=== PATIENT | male | born 1955 | race African-American/Black ===

== ENCOUNTER 2016-06-04 15:14 | Inpatient (IN) ==
[2016-06-04] MEDS ORDERED: HYDROmorphone 2 MG/1 ML VIAL IV PRN (15:22)
[2016-06-04] MEDS ORDERED: ALUMINUM/MAGNES/SIMETH MAX STR 30 ML UDCUP PO PRN (15:22)
[2016-06-04] MEDS ORDERED: GLUCAGON 1 MG VIAL IM PRN ×2 (15:22→15:32)
[2016-06-04] MEDS ORDERED: DEXTROSE 50% 25 GM/50 ML VIAL IV PRN ×2 (15:22→15:32)
[2016-06-04] MEDS ORDERED: ACETAMINOPHEN 325 MG TABLET PO PRN (15:22)
[2016-06-04] MEDS ORDERED: ONDANSETRON 4 MG/2 ML VIAL IV PRN (15:22)
--- NOTE | 2016-06-04 16:31 | General Surg History&Physical ---
Assessment and Plan - Time spent with patient Time spent with patient: Greater than 30 minutes (1) Diabetic ulcer of left foot Status: Acute Assessment and plan: Impression: 1. Diabetic ulcer of the left foot 5th metatarsal heal 2. Ischemic changes base of the left 5th toe due to infection 3. Blister of the medial foot 4. Poss osteomylitis of the 5th metatarsal bone. Plan: ampuation of the 5th toe with debridement of the foot. Qualifiers: Diabetes mellitus type: due to underlying condition Qualified Code(s): E08.621 - Diabetes mellitus due to underlying condition with foot ulcer; L97.529 - Non-pressure chronic ulcer of other part of left foot with unspecified severity History of Present Illness Chief complaint: Returns with ischemia and infection of the left foot History of present illness: Mr. Laird is a 60 year old male AA who has diabetes with chronic diabetic ulcer of the left foot. He was in the hospital last week due to bleeding of the ulcer following debridement which included bone. He returns today with wound worse with ischemic changes at the base of the 5th toe and blister on the medial aspect of the foot. He will need debridement and amputation of the 5th toe. Home Medications Medication Instructions Recorded Confirmed Type Insulin Detemir [Levemir] 30 units SUBCUT BEDTIME 01/29/16 05/29/16 History Lisinopril 40 mg PO DAILY 01/29/16 05/29/16 History amLODIPine [Norvasc] 5 mg PO DAILY 01/29/16 05/29/16 History Ciprofloxacin Tab [Cipro Tab] 500 mg PO BID 05/29/16 05/29/16 History Mometasone Furoate [Elocon 0.1% 0.1 % TOP DAILY 05/29/16 05/29/16 History Oint] Ciprofloxacin Tab [Cipro Tab] 500 mg PO Q12HR #10 tablet 05/30/16 Rx Insulin Glargine [Lantus] 30 unit SUBCUT BEDTIME injection 05/30/16 Rx Lisinopril [Prinivil] 40 mg PO DAILY tablet 05/30/16 Rx Mometasone 0.1% Cream [Elocon 0.1% 1 applic TOP DAILY cream 05/30/16 Rx Cream] amLODIPine [Norvasc] 5 mg PO DAILY tablet 05/30/16 Rx Allergies Allergy/AdvReac Type Severity Reaction Status Date / Time No Known Allergies Allergy Verified 05/29/16 19:59 Medical,Surgical,& Family Hx - Medical History Cardio: History of: Hypertension, PVD Neurology: History of: TIA (02/09/2015) No history of: Seizures HEENT: History of: Ear Problem (Mild Loss), Eye Problem Endocrine: History of: Diabetes Mellitus (IDDM) Respiratory: No history of: Pneumonia (No Pneum Vac Hx), Respiratory Problems (No Flu Vac 2016) Musculoskeletal: History of: Amputation (Right second toe R/T infection) Other: History of: Skin Problems (Ulcer Foot Surgery 01/25/13 RT; Lt Ulcer 02/01/16 ; 03/14/16 Sched for Closure) No history of: Anesthesia Reactions - Surgical History Thoracic Surgeries: Patient denies;: Organ Transplant, Lobectomy Neurologic Surgeries: Patient denies: Neurologic Surgery Reproductive Surgeries: Patient denies;: Genitourinary Surgery - Family History Family History: Reports;: Family Cancer (grand father and uncle), Family Diabetes (grandmother), Family Hypertension (mother), Family Stroke (mother) - Social History Smoking Status: Never smoker Marital Status: Lives With:: Spouse Functional capacity: independent ambulation Exam - Constitutional General appearance: mild distress - Head Head exam: Present: normal inspection - ENT ENT exam: Present: normal exam - Neck Neck exam: Present: normal inspection - Respiratory Respiratory exam: Present: clear to auscultation bilaterally - Cardiovascular Cardiovascular exam: Present: RRR - GI/Abdominal GI/Abdominal exam: Present: normal bowel sounds, soft - Extremities Exam Extremities exam: Present: other (Left foot with ulcer on the lateral aspect at the 5th metatarsal head. Ischemic skin changes on the dorsum of the foot at the base of the 5th toe. Blister on the medial aspect of the foot near the ankle.) - Neurological Exam Neurological exam: Present: alert, oriented X3, CN II-XII intact - Skin Skin exam: Present: normal color, warm, dry 12 point system: reviewed and no additional remarkable complaints except as stated Quality Measures - VTE Contraindication to Pharmacological VTE Prophylaxis: High Risk of Bleeding Contraindication to Mechanical VTE Prophylaxis: Local Inflammation
[2016-06-04 17:06] LABS: Basophils % 0.3 % (0.0-0.8); Eosinophils % 0.3 % (0.00-10.9); Hematocrit 33.5 VOL% (42.0-52.0); Hemoglobin 10.3 GM/DL (14.0-18.0); Immature Granulocytes % 0.4 %; Immature Granulocytes Absolute 0.03 #; Lymphocytes % 26.6 % (21.2-54.2); Mean Corpuscular HGB Conc 30.7 GM/DL (32-36); Mean Corpuscular Hemoglobin 28 PG (27-34); Mean Corpuscular Volume 90.5 FL (87-102); Mean Platelet Volume 9.1 FL (9.6-12.0); Monocytes # 0.6 10*3/uL (0.11-0.8); Monocytes % 7.6 % (1.7-12.7); Neutrophils # 4.8 10*3/uL (1.4-7.4); Neutrophils % 64.8 % (38.7-73.9); Platelet Count 271 10*3/uL (130-400); Red Cell Distribution Width 12.9 % (9.3-17.3); White Blood Count 7.3 10*3/uL (4.5-13.71)
[2016-06-04 17:18] LABS: INR 1.1; PT Patient Result 11.4 SECS; Partial Thromboplastin Time 28.5 SECS (0-40)
[2016-06-04 17:35] LABS: Alanine Aminotransferase 22 U/L (16-61); Albumin 3.5 G/DL (3.4-5.0); Alkaline Phosphatase 76 U/L (45-117); Aspartate Amino Transferase 17 U/L (0-37); Bilirubin,Total < 0.39 MG/DL (0.2-1.0); Blood Urea Nitrogen 35 MG/DL (7-18); Calcium 8.8 MG/DL (8.5-10.1); Glucose 119 MG/DL (74-106); Osmolality,Calculated 291.1 MOS/KG (273-304); Potassium 4.8 MMOL/L (3.5-5.1); Sodium 142 MMOL/L (136-145)
--- NOTE | 2016-06-04 17:52 | XRay Report ---
XR chest 2V Indication: Preop respiratory evaluation. Comparison: None. Technique: PA and lateral chest x-ray was performed. Findings: The heart size is within normal limits. The mediastinal contour demonstrates no significant abnormality. The lungs are clear. Bones and soft tissues demonstrate no acute abnormality. Impression: 1. No active cardiopulmonary disease. 06/04/2016 5:49 PM PROCEDURE INTERPRETED AT [facility] DEPARTMENT OF RADIOLOGY Final Report Signed by: Dr. Christiano Parker
--- NOTE | 2016-06-04 17:53 | XRay Report ---
XR foot 2V LT Indication: Alteration of the lateral foot. Comparison: Left foot x-ray 01/31/2016. Technique: AP, lateral, and oblique views of the left foot were submitted. Findings: Fragmentation and osteolysis of the distal fifth metatarsal is noted. Additionally, there may be minimal periosteal reaction extending through the proximal bony structure of the metatarsal and the metatarsal has a mottled pattern of demineralization associated. Fracture involving the base of the fifth toe proximal phalanx is not excluded. Bony structure the left foot otherwise is fairly stable compared to prior study no additional evidence of osteo-myelitis is demonstrated. Impression: 1. Findings compatible with acute osteomyelitis involving the lateral aspect of the left foot most involving the distal metatarsal and proximal phalanx of the left fifth toe, but with permeative pattern of demineralization extending along the proximal aspect of the fifth metatarsal. 06/04/2016 5:49 PM PROCEDURE INTERPRETED AT [facility] DEPARTMENT OF RADIOLOGY Final Report Signed by: Dr. Christiano Parker
[2016-06-04] MEDS: INSULIN REGULAR 100 UNIT/ML SUBCUT SCH ×2 (18:31→20:54)
[2016-06-04] MEDS: SODIUM CHLORIDE 0.45% 1,000 ML IV SCH (18:48)
[2016-06-04] MEDS: metroNIDAZOLE INJ 500 MG in PREMIX 1 EACH IV SCH (18:49)
[2016-06-04] MEDS: DOCUSATE SODIUM 100 MG CAPSULE PO SCH (20:54)
[2016-06-04] MEDS ORDERED: INSULIN GLARGINE 100 UNIT/ML SUBCUT SCH (21:00)
[2016-06-04] MEDS: INSULIN GLARGINE 100 UNIT/ML SUBCUT SCH (21:26)
[2016-06-04] MEDS: VANCOMYCIN INJ 1,500 MG in SODIUM CHLORIDE 0.9% 500 ML IV SCH (21:50)
[2016-06-05] MEDS: SODIUM CHLORIDE 0.45% 1,000 ML IV SCH ×3 (00:17→23:56)
[2016-06-05] MEDS: metroNIDAZOLE INJ 500 MG in PREMIX 1 EACH IV SCH ×3 (02:54→18:01)
[2016-06-05 08:53] LABS: Osmolality,Calculated 289.1 MOS/KG (273-304); Potassium 4.5 MMOL/L (3.5-5.1)
[2016-06-05] MEDS ORDERED: amLODIPine 10 MG TABLET PO SCH (09:00)
[2016-06-05] MEDS ORDERED: MOMETASONE FUROATE 0.1% TOP SCH (09:00)
[2016-06-05] MEDS ORDERED: LISINOPRIL 20 MG TABLET PO SCH (09:00)
[2016-06-05] MEDS: MOMETASONE 0.1% CREAM 15 GM TUBE TOP SCH (09:40)
[2016-06-05] MEDS: INSULIN REGULAR 100 UNIT/ML SUBCUT SCH ×4 (09:40→21:31)
[2016-06-05] MEDS: DOCUSATE SODIUM 100 MG CAPSULE PO SCH ×2 (09:40→21:14)
[2016-06-05] MEDS: LISINOPRIL 20 MG TABLET PO SCH (09:43)
[2016-06-05] MEDS: amLODIPine 5 MG TABLET PO SCH (09:43)
[2016-06-05] MEDS: VANCOMYCIN INJ 1,500 MG in SODIUM CHLORIDE 0.9% 500 ML IV SCH ×2 (09:44→21:50)
[2016-06-05] MEDS: PANTOPRAZOLE 40 MG TABLET PO SCH (09:44)
--- NOTE | 2016-06-05 10:38 | EKG Report ---
Stationary ECG Study [facility] Test Date: 06/05/2016 9:25:36 AM Pat Name: FREDY SAMSON Department: Room: 331 Gender: M Philosophy Instructor: : [id number] Requested by: Ian Soto Order Number: [id number] Reading MD: JOSHUA ROBLES Intervals [place] Rate: 70 P: 66 AK: 166 QRS: -11 QRSD: 103 T: 51 QT: 402 QTc: 422 Interpretive Statements SINUS RHYTHM Electronically Signed On 06-05-16 12:54:43 MAIL AGENT by JOSHUA ROBLES [email or web address]
[2016-06-05] MEDS ORDERED: BUPIVACAINE 0.25% 50 ML VIAL ONE (12:31)
[2016-06-05] MEDS ORDERED: MIDAZOLAM 2 MG/2 ML VIAL ONE ×2 (12:39→14:14)
[2016-06-05] MEDS ORDERED: fentaNYL 100 MCG/2 ML VIAL ONE ×2 (12:39→14:14)
[2016-06-05] MEDS ORDERED: ROPIVACAINE 0.5% 30 ML VIAL ONE (12:41)
[2016-06-05] MEDS ORDERED: PROPOFOL 200 MG/20 ML VIAL IV ONE (13:00)
[2016-06-05] MEDS ORDERED: ONDANSETRON 4 MG/2 ML VIAL ONE (13:00)
[2016-06-05] MEDS ORDERED: DEXTROSE 50% 25 GM/50 ML VIAL IV PRN (13:54)
[2016-06-05] MEDS ORDERED: GLUCAGON 1 MG VIAL IM PRN (13:54)
[2016-06-05] MEDS ORDERED: HYDROmorphone 2 MG/1 ML VIAL IV PRN (13:54)
--- NOTE | 2016-06-05 14:11 | Operative Note ---
Date of procedure: 06/05/16 Pre-op diagnosis: diabetic ulcer left foot fifth metatarsal with osteomyelitis and abscess fo Post-op diagnosis: same Procedure: Operative note: Preoperative diagnosis: 1. Diabetic ulceration of the left foot fifth metatarsal head with necrotic abscess formation distal lateral foot 2. Evidence of osteomyelitis of the fifth metatarsal 3. Blister of the medial aspect of the dorsum of the foot per secondary cellulitis Postoperative diagnosis same Procedure: 1. Amputation of the left fifth toe and metatarsal bone 2. Extensive debridement of skin subcutaneous tissue muscle tendon and bone of the left lateral foot 3. Debridement of blister anterior portion medial aspect the left foot Surgeon Dr. Soto Anesthesia was a ankle block with managed anesthetic care and local infiltration Brief history: 60-year-old male diabetic who has had a chronic nonhealing ulcer of the lateral aspect the left foot that it one time was actually closed but then we brought back down. I debridement last week removed a good bit of necrotic bone and cartilage in that area. He was admitted for bleeding and sent home the next day brought back to the office today to follow-up on the is being on antibiotics. His cultures grew out 2 different antibiotics and he came in with a necrotic area on the dorsum of his foot at the base of the fifth toe with blister on the medial aspect of the left foot. We needed bring him in and get this debrided. X-rays confirmed osteomyelitis and that the tarsal bone. Procedure: With patient in supine position prepped and draped in a sterile fashion Timeout and antibiotics completed approach the area of the left great toe where I infiltrated with some local anesthetic. We have had ulcer on the lateral aspect of the foot that measured 2 cm x 1 cm x 1 cm with a necrotic area anterior to this 6, measure 5 x 4 cm in size. At that point I did they elliptical incision around the base of the fifth toe with the knife and carried out to the skin subcutaneous tissue until I was able to completely remove the toe itself at this time. We encountered a good bit of necrotic tissue and purulent material that we cultured aerobically and anaerobically with tissues and swabs. I then took scissors and knife and we begin debride the necrotic tissue as this foot wound being sure that we went ahead and cleared up all the dark necrotic looking tissue including skin. This allowed us get down to the bone were is able to take periosteal elevator elevate the periosteum around the metatarsal bone and take a bone cutter remove the necrotic portion of metatarsal bone. I then took the scissors debrided a little more than necrotic tissue in the base of the skin subcutaneous tissue fascia and some muscle in this area to be sure that it is clean as I could get it. A little concerned about some necrotic tissues going on to the top of the fourth toe back cleaned it to where I can look like adequate completely clear. Once I had all the necrotic tissue in material removed from this portion of the foot I washed and irrigated and cleaned it up with saline solution. We now have a post- debridement wound at 7.5 x 4 x 1.87 m in size. At that point I slipped over to the blistered area on the medial aspect of the dorsum of the foot opened it up and there was not much fluid underneath it the skin underneath looked okay at this point time with no necrotic looking tissue that I could see. No fluctuance was noted underneath it side did not make any type of incision in this area at this time. With all this completed then washed irrigated and bleeding controlled left cauterization at this point I elected go ahead and pack it with a Dakin's wet fluff putting a bulky dressing on top wrapping with cast padding Covan to the knee. Once that was completed then we took the patient recovery room. Estimated blood loss 20 mL Sponge count correct 2 Drains none Complications none Condition stable satisfactory Anesthesia: MAC, regional (regional block at the ankle), local (local with 0.25 % Marcaine with without and 1% Xylocaine plain) Surgeon / Physician: Ian Soto Estimated blood loss: other (20 mL) Specimens: other (tissue for pathology and for culture including bone culture) Condition: stable Disposition: floor Results - Labs CBC & BMP: 06/04/16 16:56 06/05/16 07:58 Discharge Plan - Discharge Medications No Action Insulin Detemir [Levemir] 30 units SUBCUT BEDTIME amLODIPine [Norvasc] 5 mg PO DAILY tablet Mometasone Furoate [Elocon 0.1% Oint] 0.1 % TOP DAILY Ciprofloxacin Tab [Cipro Tab] 500 mg PO Q12HR #10 tablet Lisinopril [Prinivil] 40 mg PO DAILY tablet - Follow Up or Referral - Forms/Instructions
[2016-06-05] MEDS ORDERED: SODIUM CHLORIDE 0.9% 100 ML IV ONE (14:14)
--- NOTE | 2016-06-05 15:08 | Anesthesia ---
Anesthesia Procedures - Nerve Blocks Surgical Procedure: Amputation left 5th toe Main Anesthetic: other (Sciatic popliteal block) Position: supine Type of Block: Left: Popliteal Patinet Consent: Patinet consented for above nerve block., Risks and benefits were discussed with patient,including infection,, bleeding,injury to surrounding structures, seizure, temporary nerve, Patient understands and accepts potential risks/benefits and agrees to, proceed. ASA Monitors on: pulse oximetry, EKG, BP cuff, oxygen via Local Anesthetic: 0.5% Ropivicaine (5cc aliquots given to 20cc,plus aspiration) Ultrasound Used to: Recognize Landmarks (and visalize sciatic at popliteal fossa ,sacnned to visualize just before the spliting in peroneal and tibial nerve) Interscalene / Femoral BLK: 2" Stimuplex 22G needle used for posterior and inplane approach, Visualize local anesthetic spread, no vascular puncture indentified Nerve Stimulator used: Yes Inject slowly in 5cc increments with:: Negative aspitation of heme Patient vitals signs stable throughout procedure.: Patient tolertaed the procedure well with no apparent complications.
[2016-06-05 20:56] LABS: Hematocrit 26.4 VOL% (42.0-52.0); Hemoglobin 8.7 GM/DL (14.0-18.0)
[2016-06-05] MEDS: INSULIN GLARGINE 100 UNIT/ML SUBCUT SCH (21:33)
[2016-06-06] MEDS: metroNIDAZOLE INJ 500 MG in PREMIX 1 EACH IV SCH ×3 (02:46→18:18)
[2016-06-06 05:46] LABS: Basophils % 0.4 % (0.0-0.8); Eosinophils # 0.1 10*3/uL (0.0-0.87); Eosinophils % 0.9 % (0.00-10.9); Hematocrit 27.6 VOL% (42.0-52.0); Hemoglobin 8.8 GM/DL (14.0-18.0); Immature Granulocytes % 0.2 %; Immature Granulocytes Absolute 0.01 #; Lymphocytes # 1.7 10*3/uL (1.4-4.0); Lymphocytes % 29.4 % (21.2-54.2); Mean Corpuscular HGB Conc 31.9 GM/DL (32-36); Mean Corpuscular Hemoglobin 28 PG (27-34); Mean Corpuscular Volume 88.7 FL (87-102); Mean Platelet Volume 9.5 FL (9.6-12.0); Monocytes # 0.5 10*3/uL (0.11-0.8); Monocytes % 9.1 % (1.7-12.7); Neutrophils # 3.4 10*3/uL (1.4-7.4); Platelet Count 202 10*3/uL (130-400); Red Blood Count 3.11 10*6/uL (3.8-5.5); Red Cell Distribution Width 12.7 % (9.3-17.3); White Blood Count 5.6 10*3/uL (4.5-13.71)
[2016-06-06 06:22] LABS: Calcium 7.8 MG/DL (8.5-10.1); Potassium 4.8 MMOL/L (3.5-5.1)
--- NOTE | 2016-06-06 07:44 | Physician Query Form ---
CLICK EDIT DOCUMENT TO SELECT QUERY ANSWER --> OK --> SIGN Gemini Parker RN, CCDS Certified Clinical Tin Recovery Worker W) [phone] (f) [phone] [email or web address]: Make your selection(s) from the choices in EACH section by typing an "x" and enter comments in the comment section. Please use your independent medical judgment in providing your response. This request does not imply that any particular answer is desired or expected. CLINICAL INDICATORS: (Providers should not edit this section) The medical record indicates that the patient was admitted with a DM ulcer of the foot, creatinine of 2.00 on the 3rd that has to 1.30 on the 5th, GFR of 53 on the 3rd that has increased to 90 on the 5th and the patient is IV antibiotics (1700 cc in fluid) / PO intake- Clarify which of the following most accurately represents the patient's renal status: ( x) Acute kidney injury (non-traumatic) ( ) Acute renal failure ( ) Acute renal failure with underlying Chronic Kidney Disease (CKD) - please provide stage below ( ) Acute renal failure with pathological renal lesion ( ) Acute renal failure with necrosis ( ) tubular ( ) medullary ( ) cortical ( ) CKD - please provide stage below ( ) End Stage Renal Disease ( ) Acute interstitial nephritis ( ) Hepatorenal syndrome ( ) Other, please specify: ( ) Clinically unable to determine Chronic Kidney Disease Stages Source: National Kidney Disease Foundation ( ) Stage I (eGFR > or = 90) ( ) Stage II (eGFR 60 - 89) ( ) Stage III (eGFR 30 - 59) ( ) Stage IV (eGFR 15 - 29) ( ) Stage V (eGFR < 15 or dialysis) COMMENTS: Use of terms such as suspected, likely, or probable (associated with a specific diagnosis that is being evaluated, monitored, or treated as if it exists) are acceptable and can be restated in the discharge summary if not ruled out. MTDD
[2016-06-06] MEDS: INSULIN REGULAR 100 UNIT/ML SUBCUT SCH ×4 (08:14→21:41)
[2016-06-06] MEDS: amLODIPine 5 MG TABLET PO SCH (08:59)
[2016-06-06] MEDS: DOCUSATE SODIUM 100 MG CAPSULE PO SCH ×2 (08:59→21:41)
[2016-06-06] MEDS: PANTOPRAZOLE 40 MG TABLET PO SCH (08:59)
[2016-06-06] MEDS: LISINOPRIL 20 MG TABLET PO SCH (08:59)
[2016-06-06] MEDS: SODIUM CHLORIDE 0.45% 1,000 ML IV SCH ×3 (09:00→23:28)
[2016-06-06] MEDS: VANCOMYCIN INJ 1,500 MG in SODIUM CHLORIDE 0.9% 500 ML IV SCH ×2 (09:02→21:49)
--- NOTE | 2016-06-06 09:20 | Infectious Disease Consult ---
Assessment and Plan (1) Acute osteomyelitis of left foot Status: Acute Assessment and plan: Agree with current empiric antibiotics. Will follow up cultures and adjust antibiotics accordingly. Check ESR and CRP. Thank you very much for the consult. WIll follow. D/W at bedside Current Visit: Yes (2) Diabetic ulcer of left foot Status: Acute Current Visit: No Qualifiers: Diabetes mellitus type: due to underlying condition Qualified Code(s): E08.621 - Diabetes mellitus due to underlying condition with foot ulcer; L97.529 - Non-pressure chronic ulcer of other part of left foot with unspecified severity History of Present Illness Chief complaint: Osteomyelitis to Lt foot History of present illness: Mr. Laird is a 60 year old male with long standing DM developed a blister to LT foot last December. It was just below 5th toe, over the metatarsal head. THe blister ruptured and then became an ulcer. He was getting wound care with debridements but it never healed. A few days ago it flared up with increased drainage and surrounding redness and Dr Soto admitted him. He has amputation of the 5th toe yesterday. I am asked to assist with the antibiotics. Home Medications Medication Instructions Recorded Confirmed Type Insulin Detemir [Levemir] 30 units SUBCUT BEDTIME 01/29/16 06/04/16 History Mometasone Furoate [Elocon 0.1% 0.1 % TOP DAILY 05/29/16 06/04/16 History Oint] Ciprofloxacin Tab [Cipro Tab] 500 mg PO Q12HR #10 tablet 05/30/16 06/04/16 Rx Lisinopril [Prinivil] 40 mg PO DAILY tablet 05/30/16 06/04/16 Rx amLODIPine [Norvasc] 5 mg PO DAILY tablet 05/30/16 06/04/16 Rx Allergies Allergy/AdvReac Type Severity Reaction Status Date / Time No Known Allergies Allergy Verified 05/29/16 19:59 12 point system: reviewed and no additional remarkable complaints except as stated (per HPI) Medical,Surgical,& Family Hx - Medical History Cardio: History of: Hypertension, PVD Neurology: History of: TIA (02/09/2015) No history of: Seizures HEENT: History of: Ear Problem (Mild Loss), Eye Problem Endocrine: History of: Diabetes Mellitus (IDDM) Respiratory: No history of: Pneumonia (No Pneum Vac Hx), Respiratory Problems (No Flu Vac 2015) Musculoskeletal: History of: Amputation (Right second toe R/T infection) Other: History of: Skin Problems (Ulcer Foot Surgery 01/25/13 RT; Lt Ulcer 02/01/16 ; 03/14/16 Sched for Closure) No history of: Anesthesia Reactions - Surgical History Thoracic Surgeries: Patient denies;: Organ Transplant, Lobectomy Neurologic Surgeries: Patient denies: Neurologic Surgery Reproductive Surgeries: Patient denies;: Genitourinary Surgery - Family History Family History: Reports;: Family Cancer (grand father and uncle), Family Diabetes (grandmother), Family Hypertension (mother), Family Stroke (mother) - Social History Smoking Status: Never smoker Frequency of Alcohol Use: None Type of Drug Use: None Infectious Disease Exam H&P - Constitutional Vitals: Vital Signs Temp Pulse Resp BP Pulse Ox 97.6 F 70 18 122/71 95 06/06/16 05:54 06/06/16 05:54 06/06/16 05:54 06/06/16 05:54 06/06/16 05:54 Intake and Output 06/05/16 06/06/16 06/06/16 23:59 07:59 15:59 Intake Total 450 / 450 590 / 590 Output Total 900 / 900 400 / 400 Balance -450 / -450 190 / 190 Intake: IV 200 / 200 500 / 500 Vancomycin Inj 1,000 mg 500 / 500 In Ns 500 ml @ 250 mls/hr IV Q12H MIN Rx#: [id number] Fortaz 1,000 mg In Ns 100 100 / 100 ml @ 200 mls/hr IV Q8H MIN Rx#:[id number] Flagyl Inj 500 mg In 100 / 100 Premix 1 Each @ 100 mls/ hr IV Q8H MIN Rx#: [id number] Oral 250 / 250 90 / 90 Output: Urine 900 / 900 400 / 400 Other: Voiding Method Urinal Urinal # Voids 2 1 # Bowel Movements 0 0 Weight 108.953 kg Patient Weight 06/06/16 23:59 Weight 108.953 kg Exam: General: Patient comfortable HEENT: Mucous membranes pink and moist, anicteric acyanotic, BARRY, no oral exudates Neck: Supple, no thyroid gland enlargement, no lymphadenopathy Respiratory system: Breath sounds vesicular, no crepitations or wheezes Cardiovascular: Normal S1 and S2, no murmurs appreciated Abdomen: Normal bowel sounds, soft nontender throughout, no organomegaly or mass Genitourinary: No suprapubic pain or bladder distention Extremities: no edema, surgical bandage to lt foot Skin: No rash Reports - Labs CBC & BMP: 06/06/16 05:03 06/06/16 05:03 Labs: Laboratory Results - last 24 hr 06/05/16 06/05/16 06/05/16 11:12 14:15 15:30 WBC RBC Hgb Hct MCV MCH MCHC RDW Plt Count MPV Neut % (Auto) Lymph % (Auto) Granite % (Auto) Eos % (Auto) Baso % (Auto) Neut # (Auto) Lymph # (Auto) Granite # (Auto) Eos # (Auto) Baso # (Auto) Immature Gran % Nucleated RBC % Immature Gran # Nucleated RBCs # Sodium Potassium Chloride Carbon Dioxide Anion Gap BUN Creatinine GFR Calculation BUN/Creatinine Ratio Glucose POC Glucose 116 H 88 108 H Calculated Osmolality Calcium 06/05/16 06/05/16 06/06/16 19:52 20:36 05:03 WBC 5.6 RBC 3.11 L Hgb 8.7 L 8.8 L Hct 26.4 L 27.6 L MCV 88.7 MCH 28 MCHC 31.9 L RDW 12.7 Plt Count 202 D MPV 9.5 L Neut % (Auto) 60.0 Lymph % (Auto) 29.4 Granite % (Auto) 9.1 Eos % (Auto) 0.9 Baso % (Auto) 0.4 Neut # (Auto) 3.4 Lymph # (Auto) 1.7 Granite # (Auto) 0.5 Eos # (Auto) 0.1 Baso # (Auto) 0.0 Immature Gran % 0.2 Nucleated RBC % 0.0 Immature Gran # 0.01 Nucleated RBCs # 0.00 Sodium Potassium Chloride Carbon Dioxide Anion Gap BUN Creatinine GFR Calculation BUN/Creatinine Ratio Glucose POC Glucose 130 H Calculated Osmolality Calcium 06/06/16 06/06/16 05:03 07:05 WBC RBC Hgb Hct MCV MCH MCHC RDW Plt Count MPV Neut % (Auto) Lymph % (Auto) Granite % (Auto) Eos % (Auto) Baso % (Auto) Neut # (Auto) Lymph # (Auto) Granite # (Auto) Eos # (Auto) Baso # (Auto) Immature Gran % Nucleated RBC % Immature Gran # Nucleated RBCs # Sodium 143 Potassium 4.8 Chloride 107 Carbon Dioxide 27 Anion Gap 13.8 BUN 21 H Creatinine 1.30 GFR Calculation 90 BUN/Creatinine Ratio 16.00 Glucose 107 H POC Glucose 130 H Calculated Osmolality 287.0 Calcium 7.8 L - Reports Microbiology: Microbiology 06/05/16 Unknown Gram Stain - Final Foot - Left 06/05/16 Unknown Gram Stain - Final Foot - Left No organisms seen cultures from the foot in late May positive for E. coli adn E. faecalis - Diagnostic Findings Procedure: X-ray: report reviewed by me, pending (Lt foot xray showed acute osteomyelitis to 5th metatarsal head) Specialty Discharge - Follow Up or Referrals - Discharge Medications No Action Insulin Detemir [Levemir] 30 units SUBCUT BEDTIME amLODIPine [Norvasc] 5 mg PO DAILY tablet Mometasone Furoate [Elocon 0.1% Oint] 0.1 % TOP DAILY Ciprofloxacin Tab [Cipro Tab] 500 mg PO Q12HR #10 tablet Lisinopril [Prinivil] 40 mg PO DAILY tablet
--- NOTE | 2016-06-06 10:35 | General Surgery Progress Note ---
Assessment and Plan - Time spent with patient Time spent with patient: Less than 30 minutes (1) Acute osteomyelitis of left foot Status: Acute Assessment and plan: 06/06/16 Stable post op debridement of left foot osteomyelitis. Appreciate Dr Gramajo's help. We'll initiate wound care today and continue antibiotics. His is bringing his offloading shoe with peg-assist insole, so we can get PT to begin ambulating once that's available. We will continue watching his monitor strips, as he's off the Plavix right now due to bleeding issues, and hopefully we can restart that soon. Current Visit: Yes Subjective Patient reports: Present: no new complaints, tolerating a regular diet Exam - Constitutional Vitals: Period Temp Pulse Resp BP Sys/[place]al Pulse Ox Last 24 Hr 96.8 F-99.0 F 60-76 14-20 95-145/52-82 93-100 General appearance: no acute distress - Extremities Exam Extremities exam: Present: other (Post op dressing is dry without any bleeding through. Pt is not complaining of any pain. No shortness of breath. at bedside.) Results - Labs CBC & BMP: 06/06/16 05:03 06/06/16 05:03 Lab Results: I have reviewed the past 24 hour labs (Labs noted.) Quality Measures - VTE Contraindication to Pharmacological VTE Prophylaxis: High Risk of Bleeding Contraindication to Mechanical VTE Prophylaxis: Local Inflammation Specialty Discharge - Follow Up or Referrals - Discharge Medications No Action Insulin Detemir [Levemir] 30 units SUBCUT BEDTIME amLODIPine [Norvasc] 5 mg PO DAILY tablet Mometasone Furoate [Elocon 0.1% Oint] 0.1 % TOP DAILY Ciprofloxacin Tab [Cipro Tab] 500 mg PO Q12HR #10 tablet Lisinopril [Prinivil] 40 mg PO DAILY tablet
--- NOTE | 2016-06-06 11:27 | Pathology Report from [facility] ---
ACCESSION # : [id number] PATIENT NAME : Fredy Samson ORDERING DR : GIOVANA PALMER MD CLINICAL HX: Osteomyelitis 5th metatarsal left POST-OP DX: Same SPECIMEN INFO: Left 5th toe GROSS DESCRIPTION: The specimen is received in formalin labeled with the patient 's name and consists of a toe and distal metatarsal measuring 6.5 x 2.5 cm with probable gangrenous changes noted. A safety representative section of gangrenous tissue submitted in cassette A, a section of bone submitted in cassette B following decalcification. DIAGNOSIS FOR FREDY SAMSON: LEFT 5TH TOE: Wet gangrene. Acute osteomyelitis. SERVICE DATE: 06/05/2016 REPORT DATE: 06/06/2016 PATHOLOGIST: Evangelina Mon III, M.D. MTDD
--- NOTE | 2016-06-06 12:22 | Anesthesia ---
Anesthesia Post OP - Post Ansesthetic Evaluation Patient seen in post op: Yes Resp: within normal limits CV: within normal limits Mental: within normal limits Temp: within normal limits [id number]-[id number]: within normal limits Nausea and Vomiting: within normal limits Pain: within normal limits
[2016-06-06] MEDS: MOMETASONE 0.1% CREAM 15 GM TUBE TOP SCH (16:21)
[2016-06-06] MEDS: INSULIN GLARGINE 100 UNIT/ML SUBCUT SCH (21:06)
[2016-06-06] MEDS: SODIUM HYPOCHLORITE 0.25% IRRIG 473 ML BOTTLE TOP SCH (23:29)
[2016-06-07] MEDS: metroNIDAZOLE INJ 500 MG in PREMIX 1 EACH IV SCH ×3 (04:30→20:58)
[2016-06-07] MEDS: INSULIN REGULAR 100 UNIT/ML SUBCUT SCH ×4 (09:33→21:51)
--- NOTE | 2016-06-07 10:12 | General Surgery Progress Note ---
Assessment and Plan (1) Acute osteomyelitis of left foot Status: Acute Assessment and plan: 06/07/16 Doing well post op. 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 We will await final cultures and appreciate Dr Gramajo' s guidance here. Continued offloading and diabetes monitoring/management. 06/06/16 Stable post op debridement of left foot osteomyelitis. Appreciate Dr Gramajo's help. We'll initiate wound care today and continue antibiotics. His is bringing his offloading shoe with peg-assist insole, so we can get PT to begin ambulating once that's available. We will continue watching his monitor strips, as he's off the Plavix right now due to bleeding issues, and hopefully we can restart that soon. Current Visit: Yes Subjective Patient reports: Present: no new complaints, tolerating a regular diet Exam - Constitutional Vitals: Period Temp Pulse Resp BP Sys/Carvajal Pulse Ox Last 24 Hr 98.1 F-99 F 70-77 18-18 128-144/58-77 95-99 General appearance: no acute distress, over weight - Respiratory Respiratory exam: Present: clear to auscultation bilaterally - Cardiovascular Cardiovascular exam: Present: RRR - Extremities Exam Extremities exam: Present: other (Left lower extremity edema is well controlled. No gross bleeding from the operative site. The left foot wound is clean without ischemic changes. The wound bed is somewhat pale but no further necrotic tissue, no redness or purulence. The medial left foot blistered area is stable, pink without any apparent ischemia or underlying skin loss.) Results - Labs CBC & BMP: 06/06/16 05:03 06/06/16 05:03 Lab Results: I have reviewed the past 24 hour labs (Labs noted; Creatinine 1.3; Hct 27.6; wound C&S=Gram negative rods on preliminary.) Quality Measures - VTE Contraindication to Pharmacological VTE Prophylaxis: High Risk of Bleeding Contraindication to Mechanical VTE Prophylaxis: Local Inflammation Specialty Discharge - Follow Up or Referrals - Discharge Medications No Action Insulin Detemir [Levemir] 30 units SUBCUT BEDTIME amLODIPine [Norvasc] 5 mg PO DAILY tablet Mometasone Furoate [Elocon 0.1% Oint] 0.1 % TOP DAILY Ciprofloxacin Tab [Cipro Tab] 500 mg PO Q12HR #10 tablet Lisinopril [Prinivil] 40 mg PO DAILY tablet
[2016-06-07] MEDS: DOCUSATE SODIUM 100 MG CAPSULE PO SCH ×2 (10:18→20:58)
[2016-06-07] MEDS: amLODIPine 5 MG TABLET PO SCH (10:18)
[2016-06-07] MEDS: PANTOPRAZOLE 40 MG TABLET PO SCH (10:18)
[2016-06-07] MEDS: LISINOPRIL 20 MG TABLET PO SCH (10:19)
[2016-06-07] MEDS: SODIUM HYPOCHLORITE 0.25% IRRIG 473 ML BOTTLE TOP SCH (10:20)
[2016-06-07] MEDS: MOMETASONE 0.1% CREAM 15 GM TUBE TOP SCH (10:20)
--- NOTE | 2016-06-07 11:55 | Infectious Disease Progress ---
Assessment and Plan (1) Acute osteomyelitis of left foot Status: Acute Assessment and plan: Continue empiric antibiotics. Will follow up cultures and adjust antibiotics accordingly. D/W at bedside Current Visit: Yes (2) Diabetic ulcer of left foot Status: Acute Current Visit: No Qualifiers: Diabetes mellitus type: due to underlying condition Qualified Code(s): E08.621 - Diabetes mellitus due to underlying condition with foot ulcer; L97.529 - Non-pressure chronic ulcer of other part of left foot with unspecified severity Infectious Disease - PN: Subj Interval history: No complaints, no fever, tolerating antibiotics without N, V, D. Infectious Disease Exam (PN) - Constitutional Vitals: Temp Pulse Resp BP Pulse Ox 98.1 F 72 18 132/70 98 06/07/16 06:00 06/07/16 06:00 06/07/16 06:00 06/07/16 06:00 06/07/16 06:00 General appearance: no acute distress, over weight Exam: General appearance: no acute distress - Eye Eye exam: Present: EOMI. no icterus Pupils: Present: BARRY - ENT ENT exam: no oral exudates - Extremities Exam Extremities exam: Lt leg bandaged, I saw a photo of the post op wound and it looked healthy, like all the infected tissue was resected - Skin Skin exam: no rash Results - Labs CBC & BMP: 06/06/16 05:03 06/06/16 05:03 Lab Results: I have reviewed the past 24 hour labs (GNRs from all tissue specimens so far; blood cultures NGTD; acute osteo on histopath) Quality Measures - VTE Contraindication to Pharmacological VTE Prophylaxis: High Risk of Bleeding Contraindication to Mechanical VTE Prophylaxis: Local Inflammation Specialty Discharge - Follow Up or Referrals - Discharge Medications No Action Insulin Detemir [Levemir] 30 units SUBCUT BEDTIME amLODIPine [Norvasc] 5 mg PO DAILY tablet Mometasone Furoate [Elocon 0.1% Oint] 0.1 % TOP DAILY Ciprofloxacin Tab [Cipro Tab] 500 mg PO Q12HR #10 tablet Lisinopril [Prinivil] 40 mg PO DAILY tablet
[2016-06-07] MEDS: SODIUM CHLORIDE 0.45% 1,000 ML IV SCH ×3 (12:07→23:09)
[2016-06-07] MEDS: VANCOMYCIN INJ 1,500 MG in SODIUM CHLORIDE 0.9% 500 ML IV SCH (16:07)
[2016-06-07] MEDS: INSULIN GLARGINE 100 UNIT/ML SUBCUT SCH (22:12)
[2016-06-08] MEDS: metroNIDAZOLE INJ 500 MG in PREMIX 1 EACH IV SCH ×3 (03:04→18:14)
[2016-06-08 06:54] LABS: Calcium 7.9 MG/DL (8.5-10.1); Osmolality,Calculated 284.1 MOS/KG (273-304); Potassium 4.2 MMOL/L (3.5-5.1)
[2016-06-08] MEDS: VANCOMYCIN INJ 1,500 MG in SODIUM CHLORIDE 0.9% 500 ML IV SCH (09:41)
[2016-06-08] MEDS: SODIUM CHLORIDE 0.45% 1,000 ML IV SCH ×2 (09:41→16:20)
[2016-06-08] MEDS: DOCUSATE SODIUM 100 MG CAPSULE PO SCH ×2 (09:42→20:41)
[2016-06-08] MEDS: LISINOPRIL 20 MG TABLET PO SCH (09:43)
[2016-06-08] MEDS: amLODIPine 5 MG TABLET PO SCH (09:43)
[2016-06-08] MEDS: PANTOPRAZOLE 40 MG TABLET PO SCH (09:44)
[2016-06-08] MEDS: INSULIN REGULAR 100 UNIT/ML SUBCUT SCH ×4 (09:46→20:46)
--- NOTE | 2016-06-08 09:59 | General Surgery Progress Note ---
Assessment and Plan (1) Diabetic ulcer of left foot Status: Acute Assessment and plan: Impression: 1. Diabetic ulcer of the left foot 5th metatarsal heal 2. Ischemic changes base of the left 5th toe due to infection 3. Blister of the medial foot 4. Poss osteomylitis of the 5th metatarsal bone. Plan: ampuation of the 5th toe with debridement of the foot. 06/08/2016. Patient is progressing slowly at this time with this foot wound looking like it stable at this time with no progression or further infection seen. Final on the cultures are still pending at this point no sensitivities are out. Planning some long-term wound care of eventual skin grafting to this area to get it closed. After get physical therapy involved on getting him functional. Need to see what kind of boot patient has has in order to try to offload this area little bit better and stabilize him when he gets up. Current Visit: No Qualifiers: Diabetes mellitus type: due to underlying condition Qualified Code(s): E08.621 - Diabetes mellitus due to underlying condition with foot ulcer; L97.529 - Non-pressure chronic ulcer of other part of left foot with unspecified severity Subjective Patient reports: Present: tolerating a regular diet, bowel movement, afebrile, other (complains of a little queasiness possible lightheadedness today.) Exam - Constitutional Vitals: Period Temp Pulse Resp BP Sys/Carvajal Pulse Ox Last 24 Hr 97.0 F-99.1 F 62-74 15-20 125-159/54-89 95-98 General appearance: no acute distress - Head Head exam: Present: normal inspection - ENT ENT exam: Present: normal exam - Neck Neck exam: Present: normal inspection - Respiratory Respiratory exam: Present: clear to auscultation bilaterally, rales - Cardiovascular Cardiovascular exam: Present: RRR - GI/Abdominal GI/Abdominal exam: Present: normal bowel sounds, soft - Extremities Exam Extremities exam: Present: other (wound of the foot remains clean with no evidence of progressive skin loss at this time. Cultures are pending) Results - Labs CBC & BMP: 06/06/16 05:03 06/08/16 05:59 Lab Results: I have reviewed the past 24 hour labs Quality Measures - VTE Contraindication to Pharmacological VTE Prophylaxis: High Risk of Bleeding Contraindication to Mechanical VTE Prophylaxis: Local Inflammation Specialty Discharge - Follow Up or Referrals - Discharge Medications No Action Insulin Detemir [Levemir] 30 units SUBCUT BEDTIME amLODIPine [Norvasc] 5 mg PO DAILY tablet Mometasone Furoate [Elocon 0.1% Oint] 0.1 % TOP DAILY Ciprofloxacin Tab [Cipro Tab] 500 mg PO Q12HR #10 tablet Lisinopril [Prinivil] 40 mg PO DAILY tablet
[2016-06-08] MEDS: SODIUM HYPOCHLORITE 0.25% IRRIG 473 ML BOTTLE TOP SCH (12:15)
[2016-06-08] MEDS: MOMETASONE 0.1% CREAM 15 GM TUBE TOP SCH (12:16)
--- NOTE | 2016-06-08 18:38 | Ultrasound Report ---
History: Lightheaded. History of CVA Date: 06/08/2016 Study: Carotid duplex ultrasound Comparison exam: 06/08/2016 Color Doppler, wave form analysis, and grayscale analysis of the cervical carotid arteries was performed. There is mild partially calcified plaque in the right carotid bulb. Waveform analysis shows proper directional flow of the cervical carotid arteries. There is antegrade flow in either vertebral artery. The distal right ICA measures 5.9 mm diameter; the left measures 4.9 mm diameter. Peak systolic velocities are as follows: Right CCA 73 cm/s Right ICA 78 cm/s Right ECA 118 cm/s Right vertebral 54 cm/s Right IC/CC ratio 1.1 Left CCA 84 cm/s Left ICA 83 cm/s Left ECA 90 cm/s Left vertebral 54 cm/s Left IC/CC ratio 1.0 There is 0-15% diameter reduction narrowing of either internal carotid artery using indirect NASCET criteria. Ultrasound images were captured and archived. Impression: No hemodynamically significant internal carotid artery stenosis PROCEDURE INTERPRETED AT [facility] DEPARTMENT OF RADIOLOGY Final Report Signed by: Dr. Soledad Marte
[2016-06-08] MEDS: INSULIN GLARGINE 100 UNIT/ML SUBCUT SCH (20:40)
[2016-06-09] MEDS: VANCOMYCIN INJ 1,500 MG in SODIUM CHLORIDE 0.9% 500 ML IV SCH ×2 (02:32→23:12)
[2016-06-09] MEDS: metroNIDAZOLE INJ 500 MG in PREMIX 1 EACH IV SCH ×3 (02:32→18:54)
[2016-06-09 06:04] LABS: Basophils % 0.4 % (0.0-0.8); Eosinophils # 0.1 10*3/uL (0.0-0.87); Eosinophils % 1.6 % (0.00-10.9); Hematocrit 26.6 VOL% (42.0-52.0); Hemoglobin 8.4 GM/DL (14.0-18.0); Immature Granulocytes % 0.4 %; Immature Granulocytes Absolute 0.02 #; Lymphocytes # 1.8 10*3/uL (1.4-4.0); Lymphocytes % 35.2 % (21.2-54.2); Mean Corpuscular HGB Conc 31.6 GM/DL (32-36); Mean Corpuscular Hemoglobin 28 PG (27-34); Mean Corpuscular Volume 89.3 FL (87-102); Mean Platelet Volume 9.2 FL (9.6-12.0); Monocytes # 0.5 10*3/uL (0.11-0.8); Monocytes % 10.5 % (1.7-12.7); Neutrophils # 2.7 10*3/uL (1.4-7.4); Neutrophils % 51.9 % (38.7-73.9); Platelet Count 214 10*3/uL (130-400); Red Blood Count 2.98 10*6/uL (3.8-5.5); White Blood Count 5.1 10*3/uL (4.5-13.71)
[2016-06-09 06:49] LABS: Calcium 7.8 MG/DL (8.5-10.1); Magnesium 1.8 MG/DL (1.8-2.4); Osmolality,Calculated 283.8 MOS/KG (273-304); Potassium 3.8 MMOL/L (3.5-5.1)
[2016-06-09] MEDS: INSULIN REGULAR 100 UNIT/ML SUBCUT SCH ×4 (09:25→22:25)
--- NOTE | 2016-06-09 09:33 | General Surgery Progress Note ---
Assessment and Plan (1) Diabetic ulcer of left foot Status: Acute Assessment and plan: Impression: 1. Diabetic ulcer of the left foot 5th metatarsal heal 2. Ischemic changes base of the left 5th toe due to infection 3. Blister of the medial foot 4. Poss osteomylitis of the 5th metatarsal bone. Plan: ampuation of the 5th toe with debridement of the foot. 06/08/2016. Patient is progressing slowly at this time with this foot wound looking like it stable at this time with no progression or further infection seen. Final on the cultures are still pending at this point no sensitivities are out. Planning some long-term wound care of eventual skin grafting to this area to get it closed. After get physical therapy involved on getting him functional. Need to see what kind of boot patient has has in order to try to offload this area little bit better and stabilize him when he gets up. 06/09/2016. Patient seems to be improving progressing nicely without problems. The foot looks better with less evidence of infection in the wound bed looks ladle cleaner. We will look at the possibility of starting a wound VAC on this [place] and may be arranging to get some Hi-Lo matrix for the patient to improve the healing and progressing quickly to skin graft. Current Visit: No Qualifiers: Diabetes mellitus type: due to underlying condition Qualified Code(s): E08.621 - Diabetes mellitus due to underlying condition with foot ulcer; L97.529 - Non-pressure chronic ulcer of other part of left foot with unspecified severity Subjective Patient reports: Present: no new complaints, feels better, pain is less, tolerating a regular diet, bowel movement, afebrile Exam - Constitutional Vitals: Period Temp Pulse Resp BP Sys/Carvajal Pulse Ox Last 24 Hr 97.7 F-98.5 F 69-74 16-20 129-158/61-91 95-98 General appearance: mild distress - Head Head exam: Present: normal inspection - ENT ENT exam: Present: normal exam - Neck Neck exam: Present: normal inspection - Respiratory Respiratory exam: Present: clear to auscultation bilaterally, rales - Cardiovascular Cardiovascular exam: Present: RRR - GI/Abdominal GI/Abdominal exam: Present: hypoactive bowel sounds, soft - Extremities Exam Extremities exam: Present: other (wound of the left foot looks better with some improved granulating tissue present now. The area on the dorsum was foot seems to be healing up showing no signs of any progression.) - Back Exam Back exam: Present: normal inspection - Neurological Exam Neurological exam: Present: alert, oriented X3, CN II-XII intact - Skin Skin exam: Present: normal color, warm, dry Results - Labs CBC & BMP: 06/09/16 05:31 06/09/16 05:31 Lab Results: I have reviewed the past 24 hour labs Quality Measures - VTE Contraindication to Pharmacological VTE Prophylaxis: High Risk of Bleeding Contraindication to Mechanical VTE Prophylaxis: Local Inflammation Specialty Discharge - Follow Up or Referrals - Discharge Medications No Action Insulin Detemir [Levemir] 30 units SUBCUT BEDTIME amLODIPine [Norvasc] 5 mg PO DAILY tablet Mometasone Furoate [Elocon 0.1% Oint] 0.1 % TOP DAILY Ciprofloxacin Tab [Cipro Tab] 500 mg PO Q12HR #10 tablet Lisinopril [Prinivil] 40 mg PO DAILY tablet
[2016-06-09] MEDS: LISINOPRIL 20 MG TABLET PO SCH (09:49)
[2016-06-09] MEDS: PANTOPRAZOLE 40 MG TABLET PO SCH (09:49)
[2016-06-09] MEDS: amLODIPine 5 MG TABLET PO SCH (09:50)
[2016-06-09] MEDS: DOCUSATE SODIUM 100 MG CAPSULE PO SCH ×2 (09:50→22:29)
[2016-06-09] MEDS: SODIUM HYPOCHLORITE 0.25% IRRIG 473 ML BOTTLE TOP SCH (09:51)
[2016-06-09] MEDS: MOMETASONE 0.1% CREAM 15 GM TUBE TOP SCH (09:51)
[2016-06-09] MEDS: SODIUM CHLORIDE 0.45% 1,000 ML IV SCH (18:49)
[2016-06-09] MEDS: INSULIN GLARGINE 100 UNIT/ML SUBCUT SCH (22:26)
[2016-06-10] MEDS: metroNIDAZOLE INJ 500 MG in PREMIX 1 EACH IV SCH ×3 (02:43→19:23)
--- NOTE | 2016-06-10 08:32 | General Surgery Progress Note ---
Assessment and Plan - Time spent with patient Time spent with patient: Less than 30 minutes (1) Acute osteomyelitis of left foot Status: Acute Assessment and plan: 06/10/16 Left foot wound continues to improve. We will plan to repeat surface culture today; if clear, will proceed with skin graft planning. We have consulted [employer] for possible [facility] transfer, and we will switch to Negative Pressure dressing now, in hopes of stimulating granulation. Overall good progress. 06/07/16 Doing well post op. 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 We will await final cultures and appreciate Dr Gramajo' s guidance here. Continued offloading and diabetes monitoring/management. 06/06/16 Stable post op debridement of left foot osteomyelitis. Appreciate Dr Gramajo's help. We'll initiate wound care today and continue antibiotics. His is bringing his offloading shoe with peg-assist insole, so we can get PT to begin ambulating once that's available. We will continue watching his monitor strips, as he's off the Plavix right now due to bleeding issues, and hopefully we can restart that soon. Current Visit: Yes Subjective Patient reports: Present: feels better Exam - Constitutional Vitals: Period Temp Pulse Resp BP Sys/Carvajal Pulse Ox Last 24 Hr 98.4 F-99.5 F 69-79 14-20 124-173/64-87 96-99 - Extremities Exam Extremities exam: Present: other (Left foot wound is now clean and all tissue is pink; there is no active bleeding, no necrotic tissue and no ischemic progression. Periwound skin is well perfused. Medial blister area continues to epithelialize. ) Results - Labs CBC & BMP: 06/09/16 05:31 06/09/16 05:31 Lab Results: I have reviewed the past 24 hour labs Quality Measures - VTE Contraindication to Pharmacological VTE Prophylaxis: High Risk of Bleeding Contraindication to Mechanical VTE Prophylaxis: Local Inflammation Specialty Discharge - Follow Up or Referrals - Discharge Medications No Action Insulin Detemir [Levemir] 30 units SUBCUT BEDTIME amLODIPine [Norvasc] 5 mg PO DAILY tablet Mometasone Furoate [Elocon 0.1% Oint] 0.1 % TOP DAILY Ciprofloxacin Tab [Cipro Tab] 500 mg PO Q12HR #10 tablet Lisinopril [Prinivil] 40 mg PO DAILY tablet
[2016-06-10] MEDS: INSULIN REGULAR 100 UNIT/ML SUBCUT SCH ×4 (10:04→21:19)
[2016-06-10] MEDS: DOCUSATE SODIUM 100 MG CAPSULE PO SCH ×2 (10:08→22:17)
[2016-06-10] MEDS: PANTOPRAZOLE 40 MG TABLET PO SCH (10:09)
[2016-06-10] MEDS: LISINOPRIL 20 MG TABLET PO SCH (10:09)
[2016-06-10] MEDS: amLODIPine 5 MG TABLET PO SCH (10:09)
[2016-06-10] MEDS: cefTRIAXone 2,000 MG in SODIUM CHLORIDE 0.9% 100 ML IV SCH (10:12)
--- NOTE | 2016-06-10 12:13 | Infectious Disease Progress ---
Assessment and Plan (1) Acute osteomyelitis of left foot Status: Acute Assessment and plan: He had the Lt 5th toe amputated and wound looks better by report. Recommendations: 1. I de-escalated from ceftazidime to ceftriaxone 2g daily (for the E. coli) 2. Continue vancomycin for the E. faecalis 3. Can complete 7 days Flagyl for any anaerobes that may have been involved Current Visit: Yes (2) Diabetic ulcer of left foot Status: Acute Current Visit: No Qualifiers: Diabetes mellitus type: due to underlying condition Qualified Code(s): E08.621 - Diabetes mellitus due to underlying condition with foot ulcer; L97.529 - Non-pressure chronic ulcer of other part of left foot with unspecified severity Infectious Disease - PN: Subj Interval history: Doing well, no N, V, D on the antibiotics. No fever. Infectious Disease Exam (PN) - Constitutional Vitals: Temp Pulse Resp BP Pulse Ox 98.4 F 75 14 173/87 99 06/10/16 04:00 06/10/16 04:00 06/10/16 04:00 06/10/16 04:00 06/10/16 04:00 General appearance: mild distress Exam: General appearance: no acute distress - Eye Eye exam: Present: EOMI. no icterus Pupils: Present: BARRY - ENT ENT exam: no oral exudates - Neck Neck exam: supple, no lymphadenopathy - Respiratory Respiratory exam: vesicular BS, no crepitations or wheezes - Cardiovascular Cardiovascular exam: regular rate and rhythm, no murmurs - GI/Abdominal GI/Abdominal exam: normal bowel sounds, soft, non-tender, no organomegaly or mass - Extremities Exam Extremities exam: now has wound vac to Lt foot wound - Skin Skin exam: no rash Results - Labs CBC & BMP: 06/09/16 05:31 06/09/16 05:31 Lab Results: I have reviewed the past 24 hour labs (E. coli from 3 specimens; E. faecalis from 1 specimen, blood cultures negative) Quality Measures - VTE Contraindication to Pharmacological VTE Prophylaxis: High Risk of Bleeding Contraindication to Mechanical VTE Prophylaxis: Local Inflammation Specialty Discharge - Follow Up or Referrals - Discharge Medications No Action Insulin Detemir [Levemir] 30 units SUBCUT BEDTIME amLODIPine [Norvasc] 5 mg PO DAILY tablet Mometasone Furoate [Elocon 0.1% Oint] 0.1 % TOP DAILY Ciprofloxacin Tab [Cipro Tab] 500 mg PO Q12HR #10 tablet Lisinopril [Prinivil] 40 mg PO DAILY tablet
[2016-06-10] MEDS: MOMETASONE 0.1% CREAM 15 GM TUBE TOP SCH (15:35)
[2016-06-10] MEDS: VANCOMYCIN INJ 1,500 MG in SODIUM CHLORIDE 0.9% 500 ML IV SCH (15:56)
[2016-06-10] MEDS: SODIUM HYPOCHLORITE 0.25% IRRIG 473 ML BOTTLE TOP SCH (20:45)
[2016-06-10] MEDS: INSULIN GLARGINE 100 UNIT/ML SUBCUT SCH (21:17)
[2016-06-11] MEDS: metroNIDAZOLE INJ 500 MG in PREMIX 1 EACH IV SCH ×3 (04:55→19:13)
--- NOTE | 2016-06-11 09:47 | Event Note ---
Patient doing ok, tolerating antibiotics and wound vac. Awaiting word from [facility]. Will continue current antibiotics and other care.
[2016-06-11] MEDS: INSULIN REGULAR 100 UNIT/ML SUBCUT SCH ×4 (09:49→21:13)
[2016-06-11] MEDS: DOCUSATE SODIUM 100 MG CAPSULE PO SCH ×2 (09:56→20:20)
[2016-06-11] MEDS: PANTOPRAZOLE 40 MG TABLET PO SCH (09:56)
[2016-06-11] MEDS: LISINOPRIL 20 MG TABLET PO SCH (09:56)
[2016-06-11] MEDS: amLODIPine 5 MG TABLET PO SCH (09:56)
[2016-06-11] MEDS: VANCOMYCIN INJ 1,500 MG in SODIUM CHLORIDE 0.9% 500 ML IV SCH (09:58)
[2016-06-11] MEDS: MOMETASONE 0.1% CREAM 15 GM TUBE TOP SCH (10:00)
--- NOTE | 2016-06-11 11:02 | General Surgery Progress Note ---
Assessment and Plan - Time spent with patient Time spent with patient: Less than 30 minutes (1) Diabetic ulcer of left foot Status: Acute Assessment and plan: Impression: 1. Diabetic ulcer of the left foot 5th metatarsal heal 2. Ischemic changes base of the left 5th toe due to infection 3. Blister of the medial foot 4. Poss osteomylitis of the 5th metatarsal bone. Plan: ampuation of the 5th toe with debridement of the foot. 06/08/2016. Patient is progressing slowly at this time with this foot wound looking like it stable at this time with no progression or further infection seen. Final on the cultures are still pending at this point no sensitivities are out. Planning some long-term wound care of eventual skin grafting to this area to get it closed. After get physical therapy involved on getting him functional. Need to see what kind of boot patient has has in order to try to offload this area little bit better and stabilize him when he gets up. 06/09/2016. Patient seems to be improving progressing nicely without problems. The foot looks better with less evidence of infection in the wound bed looks bisque cleaner. We will look at the possibility of starting a wound VAC on this [place] and may be arranging to get some Hi-Lo matrix for the patient to improve the healing and progressing quickly to skin graft. 06/11/2016. Patient is afebrile and wound VAC is in place at this time. Awaiting own word to see if he can go to [facility] for additional IV antibiotics and wound care. Considering the possibility of getting some Hi-Lo matrix onto the wound bed along with the VAC in attempt to try to improve the healing and get her ready for skin grafting. Current Visit: No Qualifiers: Diabetes mellitus type: due to underlying condition Qualified Code(s): E08.621 - Diabetes mellitus due to underlying condition with foot ulcer; L97.529 - Non-pressure chronic ulcer of other part of left foot with unspecified severity Subjective Patient reports: Present: no new complaints, afebrile Exam - Constitutional Vitals: Period Temp Pulse Resp BP Sys/Carvajal Pulse Ox Last 24 Hr 98.2 F-98.4 F 71-91 18-20 138-155/67-85 94-99 General appearance: mild distress - Head Head exam: Present: normal inspection - ENT ENT exam: Present: normal exam - Neck Neck exam: Present: normal inspection - Respiratory Respiratory exam: Present: clear to auscultation bilaterally - Cardiovascular Cardiovascular exam: Present: RRR - GI/Abdominal GI/Abdominal exam: Present: normal bowel sounds, soft - Extremities Exam Extremities exam: Present: normal inspection - Neurological Exam Neurological exam: Present: alert, oriented X3, CN II-XII intact - Skin Skin exam: Present: normal color, warm, dry Results - Labs CBC & BMP: 06/09/16 05:31 06/09/16 05:31 Lab Results: I have reviewed the past 24 hour labs Quality Measures - VTE Contraindication to Pharmacological VTE Prophylaxis: High Risk of Bleeding Contraindication to Mechanical VTE Prophylaxis: Local Inflammation Specialty Discharge - Follow Up or Referrals - Discharge Medications No Action Insulin Detemir [Levemir] 30 units SUBCUT BEDTIME amLODIPine [Norvasc] 5 mg PO DAILY tablet Mometasone Furoate [Elocon 0.1% Oint] 0.1 % TOP DAILY Ciprofloxacin Tab [Cipro Tab] 500 mg PO Q12HR #10 tablet Lisinopril [Prinivil] 40 mg PO DAILY tablet
[2016-06-11] MEDS: cefTRIAXone 2,000 MG in SODIUM CHLORIDE 0.9% 100 ML IV SCH (15:21)
[2016-06-11] MEDS: SODIUM HYPOCHLORITE 0.25% IRRIG 473 ML BOTTLE TOP SCH (19:30)
[2016-06-11] MEDS: INSULIN GLARGINE 100 UNIT/ML SUBCUT SCH (21:14)
[2016-06-12] MEDS: metroNIDAZOLE INJ 500 MG in PREMIX 1 EACH IV SCH ×2 (02:01→12:27)
[2016-06-12] MEDS: VANCOMYCIN INJ 1,500 MG in SODIUM CHLORIDE 0.9% 500 ML IV SCH (04:25)
--- NOTE | 2016-06-12 09:31 | General Surgery Progress Note ---
Assessment and Plan (1) Diabetic ulcer of left foot Status: Acute Assessment and plan: Impression: 1. Diabetic ulcer of the left foot 5th metatarsal heal 2. Ischemic changes base of the left 5th toe due to infection 3. Blister of the medial foot 4. Poss osteomylitis of the 5th metatarsal bone. Plan: ampuation of the 5th toe with debridement of the foot. 06/08/2016. Patient is progressing slowly at this time with this foot wound looking like it stable at this time with no progression or further infection seen. Final on the cultures are still pending at this point no sensitivities are out. Planning some long-term wound care of eventual skin grafting to this area to get it closed. After get physical therapy involved on getting him functional. Need to see what kind of boot patient has has in order to try to offload this area little bit better and stabilize him when he gets up. 06/09/2016. Patient seems to be improving progressing nicely without problems. The foot looks better with less evidence of infection in the wound bed looks glass cleaner. We will look at the possibility of starting a wound VAC on this [place] and may be arranging to get some Hi-Lo matrix for the patient to improve the healing and progressing quickly to skin graft. 06/11/2016. Patient is afebrile and wound VAC is in place at this time. Awaiting own word to see if he can go to [facility] for additional IV antibiotics and wound care. Considering the possibility of getting some Hi-Lo matrix onto the wound bed along with the VAC in attempt to try to improve the healing and get her ready for skin grafting. 06/12/2016 Patient's afebrile wound VAC is in place at this time. Still waiting to hear from insurance about [facility] at this time. Still receiving IV antibiotics at this time. Current Visit: No Qualifiers: Diabetes mellitus type: due to underlying condition Qualified Code(s): E08.621 - Diabetes mellitus due to underlying condition with foot ulcer; L97.529 - Non-pressure chronic ulcer of other part of left foot with unspecified severity Subjective Patient reports: Present: feels better, tolerating a regular diet, afebrile Exam - Constitutional Vitals: Period Temp Pulse Resp BP Sys/Carvajal Pulse Ox Last 24 Hr 98.1 F-98.4 F 75-78 18-18 142-171/83-91 99-100 General appearance: no acute distress - Head Head exam: Present: normal inspection - ENT ENT exam: Present: normal exam - Neck Neck exam: Present: normal inspection - Respiratory Respiratory exam: Present: clear to auscultation bilaterally, rales - Cardiovascular Cardiovascular exam: Present: RRR - GI/Abdominal GI/Abdominal exam: Present: normal bowel sounds, soft - Extremities Exam Extremities exam: Present: other (wound VAC is in place). Absent: edema - Neurological Exam Neurological exam: Present: alert, oriented X3, CN II-XII intact - Skin Skin exam: Present: normal color, warm, dry Results - Labs CBC & BMP: 06/09/16 05:31 06/09/16 05:31 Lab Results: I have reviewed the past 24 hour labs Quality Measures - VTE Contraindication to Pharmacological VTE Prophylaxis: High Risk of Bleeding Contraindication to Mechanical VTE Prophylaxis: Local Inflammation
[2016-06-12 09:43] LABS: Calcium 7.9 MG/DL (8.5-10.1); Osmolality,Calculated 289.7 MOS/KG (273-304); Potassium 3.6 MMOL/L (3.5-5.1)
[2016-06-12] MEDS: PANTOPRAZOLE 40 MG TABLET PO SCH (09:49)
[2016-06-12] MEDS: LISINOPRIL 20 MG TABLET PO SCH (09:50)
[2016-06-12] MEDS: DOCUSATE SODIUM 100 MG CAPSULE PO SCH ×2 (09:50→21:50)
[2016-06-12] MEDS: amLODIPine 5 MG TABLET PO SCH (09:50)
[2016-06-12] MEDS: INSULIN REGULAR 100 UNIT/ML SUBCUT SCH ×4 (11:00→21:51)
[2016-06-12] MEDS: cefTRIAXone 2,000 MG in SODIUM CHLORIDE 0.9% 100 ML IV SCH (11:10)
--- NOTE | 2016-06-12 11:49 | Infectious Disease Progress ---
Assessment and Plan (1) Acute osteomyelitis of left foot Status: Acute Assessment and plan: He had the Lt 5th toe amputated. E. feacalis E. coli cultured. Creat acutely up , likely due to the vancomycin. Recommendations: 1. Check vanc. trough before next dose. hold dose until result recieved to ensure not supratherapeutic (communciated this with clinical pharmacy) 2. Recheck renal function tomorrow 3. Continue ceftriaxone 4. Can stop Flagyl now; he completed 8 days course empirically for anaerobes 5. If he is not going to [facility], would send home on cefuroxime and linezolid. Will ask drug abuse social worker to see if he can be approved for linezolid. Current Visit: Yes (2) Diabetic ulcer of left foot Status: Acute Current Visit: No Qualifiers: Diabetes mellitus type: due to underlying condition Qualified Code(s): E08.621 - Diabetes mellitus due to underlying condition with foot ulcer; L97.529 - Non-pressure chronic ulcer of other part of left foot with unspecified severity Infectious Disease - PN: Subj Interval history: Patient continues to do ok, no N, V, D on the antibiotics. No fever. Tolerating wound vac to lt foot. Infectious Disease Exam (PN) - Constitutional Vitals: Temp Pulse Resp BP Pulse Ox 98.4 F 78 18 148/88 100 06/12/16 04:15 06/12/16 04:15 06/12/16 04:15 06/12/16 04:15 06/12/16 04:15 General appearance: no acute distress Exam: General appearance: no acute distress - Eye Eye exam: Present: EOMI. no icterus Pupils: Present: BARRY - ENT ENT exam: no oral exudates - Extremities Exam Extremities exam: Lt foot wound with VAC - Skin Skin exam: no rash Results - Labs CBC & BMP: 06/09/16 05:31 06/12/16 09:00 Lab Results: I have reviewed the past 24 hour labs Quality Measures - VTE Contraindication to Pharmacological VTE Prophylaxis: High Risk of Bleeding Contraindication to Mechanical VTE Prophylaxis: Local Inflammation
[2016-06-12] MEDS: SODIUM HYPOCHLORITE 0.25% IRRIG 473 ML BOTTLE TOP SCH (12:32)
[2016-06-12] MEDS: MOMETASONE 0.1% CREAM 15 GM TUBE TOP SCH (12:32)
[2016-06-12] MEDS: INSULIN GLARGINE 100 UNIT/ML SUBCUT SCH (21:51)
[2016-06-13 05:38] LABS: Basophils % 0.1 % (0.0-0.8); Eosinophils # 0.1 10*3/uL (0.0-0.87); Eosinophils % 0.7 % (0.00-10.9); Hematocrit 27.9 VOL% (42.0-52.0); Hemoglobin 8.9 GM/DL (14.0-18.0); Immature Granulocytes % 0.3 %; Immature Granulocytes Absolute 0.02 #; Lymphocytes # 1.6 10*3/uL (1.4-4.0); Lymphocytes % 23.2 % (21.2-54.2); Mean Corpuscular HGB Conc 31.9 GM/DL (32-36); Mean Corpuscular Hemoglobin 29 PG (27-34); Mean Corpuscular Volume 89.4 FL (87-102); Mean Platelet Volume 9.4 FL (9.6-12.0); Monocytes # 0.7 10*3/uL (0.11-0.8); Monocytes % 10.4 % (1.7-12.7); Neutrophils # 4.4 10*3/uL (1.4-7.4); Neutrophils % 65.3 % (38.7-73.9); Platelet Count 223 10*3/uL (130-400); Red Blood Count 3.12 10*6/uL (3.8-5.5); Red Cell Distribution Width 13.5 % (9.3-17.3); White Blood Count 6.7 10*3/uL (4.5-13.71)
[2016-06-13 06:17] LABS: Calcium 7.8 MG/DL (8.5-10.1); Magnesium 1.9 MG/DL (1.8-2.4); Osmolality,Calculated 284.8 MOS/KG (273-304); Potassium 3.6 MMOL/L (3.5-5.1)
--- NOTE | 2016-06-13 09:30 | General Surgery Progress Note ---
Assessment and Plan - Time spent with patient Time spent with patient: Less than 30 minutes (1) Diabetic ulcer of left foot Status: Acute Assessment and plan: Impression: 1. Diabetic ulcer of the left foot 5th metatarsal heal 2. Ischemic changes base of the left 5th toe due to infection 3. Blister of the medial foot 4. Poss osteomylitis of the 5th metatarsal bone. Plan: ampuation of the 5th toe with debridement of the foot. 06/08/2016. Patient is progressing slowly at this time with this foot wound looking like it stable at this time with no progression or further infection seen. Final on the cultures are still pending at this point no sensitivities are out. Planning some long-term wound care of eventual skin grafting to this area to get it closed. After get physical therapy involved on getting him functional. Need to see what kind of boot patient has has in order to try to offload this area little bit better and stabilize him when he gets up. 06/09/2016. Patient seems to be improving progressing nicely without problems. The foot looks better with less evidence of infection in the wound bed looks fish cleaner. We will look at the possibility of starting a wound VAC on this london and may be arranging to get some Hi-Lo matrix for the patient to improve the healing and progressing quickly to skin graft. 06/11/2016. Patient is afebrile and wound VAC is in place at this time. Awaiting own word to see if he can go to [facility] for additional IV antibiotics and wound care. Considering the possibility of getting some Hi-Lo matrix onto the wound bed along with the VAC in attempt to try to improve the healing and get her ready for skin grafting. 06/12/2016 Patient's afebrile wound VAC is in place at this time. Still waiting to hear from insurance about [facility] at this time. Still receiving IV antibiotics at this time. 06/13/2016. Patient's insurance has denied him to go to [facility] looking at alternatives for care. We will consider swing bed versus home health. Now that we have a wound VAC in place have ordered some Hi-Lo matrix and we will plan to put it in the wound to more and VAC it down. Current Visit: No Qualifiers: Diabetes mellitus type: due to underlying condition Qualified Code(s): E08.621 - Diabetes mellitus due to underlying condition with foot ulcer; L97.529 - Non-pressure chronic ulcer of other part of left foot with unspecified severity Subjective Patient reports: Present: feels better, tolerating a regular diet, bowel movement, afebrile Exam - Constitutional Vitals: Period Temp Pulse Resp BP Sys/Carvajal Pulse Ox Last 24 Hr 98.1 F-98.7 F 70-84 18-20 126-156/72-79 97-99 General appearance: mild distress - Head Head exam: Present: normal inspection - ENT ENT exam: Present: normal exam - Neck Neck exam: Present: normal inspection - Respiratory Respiratory exam: Present: clear to auscultation bilaterally - Cardiovascular Cardiovascular exam: Present: RRR - GI/Abdominal GI/Abdominal exam: Present: normal bowel sounds, soft - Extremities Exam Extremities exam: Present: normal inspection, other (wound VAC on the left foot is in place functioning well) - Back Exam Back exam: Present: normal inspection - Neurological Exam Neurological exam: Present: alert, oriented X3, CN II-XII intact - Skin Skin exam: Present: normal color, warm Results - Labs CBC & BMP: 06/13/16 04:21 06/13/16 04:20 Lab Results: I have reviewed the past 24 hour labs Quality Measures - VTE Contraindication to Pharmacological VTE Prophylaxis: High Risk of Bleeding Contraindication to Mechanical VTE Prophylaxis: Local Inflammation
[2016-06-13] MEDS: INSULIN REGULAR 100 UNIT/ML SUBCUT SCH ×4 (10:33→21:47)
[2016-06-13] MEDS: DOCUSATE SODIUM 100 MG CAPSULE PO SCH ×2 (10:35→21:44)
[2016-06-13] MEDS: PANTOPRAZOLE 40 MG TABLET PO SCH (10:35)
[2016-06-13] MEDS: amLODIPine 5 MG TABLET PO SCH (10:36)
[2016-06-13] MEDS: LISINOPRIL 20 MG TABLET PO SCH (10:36)
[2016-06-13] MEDS: cefTRIAXone 2,000 MG in SODIUM CHLORIDE 0.9% 100 ML IV SCH (10:37)
[2016-06-13] MEDS: SODIUM HYPOCHLORITE 0.25% IRRIG 473 ML BOTTLE TOP SCH (10:42)
[2016-06-13] MEDS: MOMETASONE 0.1% CREAM 15 GM TUBE TOP SCH (10:42)
--- NOTE | 2016-06-13 15:06 | Infectious Disease Progress ---
Assessment and Plan (1) Acute osteomyelitis of left foot Status: Acute Assessment and plan: He had the Lt 5th toe amputated. E. feacalis E. coli cultured. Creat acutely up , likely due to the vancomycin. Recommendations: 1. Stop vancomycin 2. Start linezolid; consult neonatal social worker to approve it for when he goes home 3. Continue ceftriaxone; but when ready for discharge home this can be switched to cefuroxime 500mg bid Current Visit: Yes (2) Diabetic ulcer of left foot Status: Acute Current Visit: No Qualifiers: Diabetes mellitus type: due to underlying condition Qualified Code(s): E08.621 - Diabetes mellitus due to underlying condition with foot ulcer; L97.529 - Non-pressure chronic ulcer of other part of left foot with unspecified severity Infectious Disease - PN: Subj Interval history: Patient doing ok. No complaints. Denies N, V, D. No cough or SOB. Denied for LTAC by insurance. Infectious Disease Exam (PN) - Constitutional Vitals: Temp Pulse Resp BP Pulse Ox 98.4 F 81 20 140/78 99 06/13/16 12:00 06/13/16 12:00 06/13/16 12:00 06/13/16 12:00 06/13/16 12:00 General appearance: mild distress Exam: General appearance: no acute distress - Eye Eye exam: Present: EOMI. no icterus Pupils: Present: BARRY - ENT ENT exam: no oral exudates General appearance: no acute distress - Eye Eye exam: Present: EOMI. no icterus Pupils: Present: BARRY - Respiratory Respiratory exam: vesicular BS, no crepitations or wheezes - Cardiovascular Cardiovascular exam: regular rate and rhythm, no murmurs - GI/Abdominal GI/Abdominal exam: normal bowel sounds, soft, non-tender, no organomegaly or mass - Extremities Exam Extremities exam: Lt foot wound bandaged with VAC - Skin Skin exam: no rash Results - Labs CBC & BMP: 06/13/16 04:21 06/13/16 04:20 Lab Results: I have reviewed the past 24 hour labs (renal function a bit worst today) Quality Measures - VTE Contraindication to Pharmacological VTE Prophylaxis: High Risk of Bleeding Contraindication to Mechanical VTE Prophylaxis: Local Inflammation
[2016-06-13] MEDS ORDERED: VANCOMYCIN INJ 1,500 MG in SODIUM CHLORIDE 0.9% 500 ML IV SCH ×2 (16:00)
[2016-06-13] MEDS: LINEZOLID 600 MG TABLET PO SCH (21:44)
[2016-06-13] MEDS: INSULIN GLARGINE 100 UNIT/ML SUBCUT SCH (21:48)
[2016-06-14] MEDS: amLODIPine 5 MG TABLET PO SCH ×2 (06:12→11:59)
[2016-06-14] MEDS: INSULIN REGULAR 100 UNIT/ML SUBCUT SCH ×4 (08:32→21:35)
[2016-06-14] MEDS: cefTRIAXone 2,000 MG in SODIUM CHLORIDE 0.9% 100 ML IV SCH (08:44)
[2016-06-14] MEDS: LISINOPRIL 20 MG TABLET PO SCH (08:47)
[2016-06-14] MEDS ORDERED: ROPIVACAINE 0.5% 30 ML VIAL ONE (09:10)
--- NOTE | 2016-06-14 11:51 | Anesthesia ---
Anesthesia Procedures - Nerve Blocks Nerve Block Consent: other (Primary anesthetic for surgery and post op pain control.) Surgical Procedure: I/D Left foot w Hi-Low Mesh Main Anesthetic: other (Popliteal Block) Location: Pre-op area Position: supine Type of Block: Left: Popliteal Patinet Consent: Patinet consented for above nerve block., Risks and benefits were discussed with patient,including infection,, bleeding,injury to surrounding structures, seizure, temporary nerve, Patient understands and accepts potential risks/benefits and agrees to, proceed. ASA Monitors on: pulse oximetry, EKG, BP cuff, oxygen via Local Anesthetic: Sterile technique with 2% Chlorhexidine / Betadine (No Betadine used; just Chloraprep.), 0.5% Ropivicaine (30cc injected surrounding nerve in "doughnut" fashion.), other Ultrasound Used to: Recognize Landmarks Interscalene / Femoral BLK: Visualize local anesthetic spread, no vascular puncture indentified Nerve Stimulator used: Yes Inject slowly in 5cc increments with:: Negative aspitation of heme Patient vitals signs stable throughout procedure.: Patient tolertaed the procedure well with no apparent complications. (PT received total of 6mg of Versed since last time he remembered block and desired not to remember this block. Maintained SpO2 at 100% during whole procedure. Did well. Ultrasound machine did not save picture.)
[2016-06-14] MEDS ORDERED: LIDOCAINE 100 MG/5 ML SYRINGE ONE (12:31)
[2016-06-14] MEDS ORDERED: PROPOFOL 200 MG/20 ML VIAL IV ONE (12:31)
[2016-06-14] MEDS ORDERED: MIDAZOLAM 2 MG/2 ML VIAL ONE (13:10)
[2016-06-14] MEDS ORDERED: fentaNYL 100 MCG/2 ML VIAL ONE (13:18)
--- NOTE | 2016-06-14 13:27 | Operative Note ---
Date of procedure: 06/14/16 Pre-op diagnosis: Open left foot wound post toe amputationsecondary to acute osteomyelitis Implants: Brief summary-This 60 year old male patient with diabetes had failed outpatient treatment for a left dorsal foot ulcer since February 2016. The area had been debrided several times and actually been closed, but dehisced and become reinfected. He was seen in the office on the day of admission, where the area was found to have gross infection, swelling, and erythema. He was subsequently admitted, placed on IV antibiotics, and found to have acute osteomyelitis with abscess. He underwent incision, drainage, excisional debridement with amputation of the left 5th toe, and has been recovering nicely. The infection has been responding, with good IV antibiotic coverage. We initiated wound VAC this week, and he continues to do well. He now has a 7.4 x 3.8 x 1.3cm defect in this area and we felt that if we could get some deeper coverage, we may be able to speed the wound toward grafting, so a Hyalomatrix wound product has been selected and he is brought to the OR today for selective debridement and placement. Procedure-With the patient supine and and under Monitored IV conscious sedation , the area was prepped with betadine and draped in sterile fashion. A customary time out was performed, confirming the patient, site, procedure, and crew. The left foot was then cleaned and measured, with the clean granulating wound noted to be 7.4 x 3.8 x 1.3cm. There was no open connective or bony tissue seen. The area was cleaned well and then taking a 10g scalpel, the base was cleaned sharply to bleeding tissue. The skin edges were left intact. There was some mild biofilm at the most lateral edge, which was removed without difficulty, and a small portion of the deeper tissue was taken for culture. At that point, the wound was again irrigated with copious amounts of saline and bleeding was controlled with electrocautery. A 5x5cm Hyalomatrix product was taken onto the field, scored for drainage, and then arranged on the diagonal over the wound, covering nearly the total wound surface. It was secured at the edges with skin clips, except for 1cm of the most proximal apex, of which I was able to take a corner of the remaining material and place in this region. Once this was in place, I then covered the entire material with Mepitel, prepped the periwound skin with Benzoin, and then replaced the NPWT wound vac sponge over the wound at -100mm Hg/continuous. There was a small medial abrasion, which was covered with Adaptic for protection, and then a heel pad placed on the left heel. The left leg was then wrapped from the base of the toes to the popliteal with cast padding and secured with coban. He tolerated it well and he was returned to the PACU in stable/satisfactory condition. EBL -5mL; complications none. Surgeon / Physician: Leona Gamboa Estimated blood loss: minimal Specimens: other (Tissue/wound culture) Condition: stable Disposition: PACU Results - Labs CBC & BMP: 06/13/16 04:21 06/13/16 04:20 Discharge Plan - Discharge Medications No Action Insulin Detemir [Levemir] 30 units SUBCUT BEDTIME amLODIPine [Norvasc] 5 mg PO DAILY tablet Mometasone Furoate [Elocon 0.1% Oint] 0.1 % TOP DAILY Ciprofloxacin Tab [Cipro Tab] 500 mg PO Q12HR #10 tablet Lisinopril [Prinivil] 40 mg PO DAILY tablet - Follow Up or Referral - Forms/Instructions
[2016-06-14] MEDS ORDERED: GLUCAGON 1 MG VIAL IM PRN (14:02)
[2016-06-14] MEDS ORDERED: DEXTROSE 50% 25 GM/50 ML VIAL IV PRN (14:02)
[2016-06-14] MEDS: SODIUM HYPOCHLORITE 0.25% IRRIG 473 ML BOTTLE TOP SCH (15:02)
[2016-06-14] MEDS: MOMETASONE 0.1% CREAM 15 GM TUBE TOP SCH (15:03)
[2016-06-14] MEDS: LINEZOLID 600 MG TABLET PO SCH ×2 (15:06→21:03)
[2016-06-14] MEDS: DOCUSATE SODIUM 100 MG CAPSULE PO SCH ×2 (15:06→21:03)
[2016-06-14] MEDS: PANTOPRAZOLE 40 MG TABLET PO SCH (15:06)
--- NOTE | 2016-06-14 16:04 | Anesthesia ---
Anesthesia Post OP - Post Ansesthetic Evaluation Patient seen in post op: Yes Resp: within normal limits CV: within normal limits Mental: within normal limits Temp: within normal limits [id number]: within normal limits Nausea and Vomiting: within normal limits Pain: within normal limits
[2016-06-14] MEDS: INSULIN GLARGINE 100 UNIT/ML SUBCUT SCH (21:46)
[2016-06-15] MEDS: INSULIN REGULAR 100 UNIT/ML SUBCUT SCH ×4 (07:44→21:23)
[2016-06-15] MEDS: cefTRIAXone 2,000 MG in SODIUM CHLORIDE 0.9% 100 ML IV SCH (09:14)
[2016-06-15] MEDS: LINEZOLID 600 MG TABLET PO SCH ×2 (09:15→20:53)
[2016-06-15] MEDS: amLODIPine 5 MG TABLET PO SCH (09:15)
[2016-06-15] MEDS: MOMETASONE 0.1% CREAM 15 GM TUBE TOP SCH (09:15)
[2016-06-15] MEDS: SODIUM HYPOCHLORITE 0.25% IRRIG 473 ML BOTTLE TOP SCH (09:15)
[2016-06-15] MEDS: LISINOPRIL 20 MG TABLET PO SCH (09:15)
[2016-06-15] MEDS: PANTOPRAZOLE 40 MG TABLET PO SCH (09:15)
[2016-06-15] MEDS: DOCUSATE SODIUM 100 MG CAPSULE PO SCH ×2 (09:15→20:53)
--- NOTE | 2016-06-15 12:21 | Event Note ---
He feels well. He is afebrile with stable vital signs. His dressing is dry and he has no leg pain. His leg is nontender. Continue with the vacuum dressing
[2016-06-15] MEDS: INSULIN GLARGINE 100 UNIT/ML SUBCUT SCH (21:37)
[2016-06-16] MEDS: INSULIN REGULAR 100 UNIT/ML SUBCUT SCH ×4 (08:51→22:15)
[2016-06-16] MEDS: cefTRIAXone 2,000 MG in SODIUM CHLORIDE 0.9% 100 ML IV SCH (08:52)
[2016-06-16] MEDS: PANTOPRAZOLE 40 MG TABLET PO SCH (08:53)
[2016-06-16] MEDS: LISINOPRIL 20 MG TABLET PO SCH (08:53)
[2016-06-16] MEDS: amLODIPine 5 MG TABLET PO SCH (08:53)
[2016-06-16] MEDS: DOCUSATE SODIUM 100 MG CAPSULE PO SCH ×2 (08:53→22:09)
[2016-06-16] MEDS: MOMETASONE 0.1% CREAM 15 GM TUBE TOP SCH (08:53)
[2016-06-16] MEDS: LINEZOLID 600 MG TABLET PO SCH ×2 (08:53→22:09)
[2016-06-16] MEDS: SODIUM HYPOCHLORITE 0.25% IRRIG 473 ML BOTTLE TOP SCH (08:53)
--- NOTE | 2016-06-16 11:48 | Event Note ---
He has no complaints. His dressing is dry.
[2016-06-16] MEDS: INSULIN GLARGINE 100 UNIT/ML SUBCUT SCH (22:15)
--- NOTE | 2016-06-17 06:05 | General Surgery Progress Note ---
Assessment and Plan (1) Diabetic ulcer of left foot Status: Acute Assessment and plan: Impression: 1. Diabetic ulcer of the left foot 5th metatarsal heal 2. Ischemic changes base of the left 5th toe due to infection 3. Blister of the medial foot 4. Poss osteomylitis of the 5th metatarsal bone. Plan: ampuation of the 5th toe with debridement of the foot. 06/08/2016. Patient is progressing slowly at this time with this foot wound looking like it stable at this time with no progression or further infection seen. Final on the cultures are still pending at this point no sensitivities are out. Planning some long-term wound care of eventual skin grafting to this area to get it closed. After get physical therapy involved on getting him functional. Need to see what kind of boot patient has has in order to try to offload this area little bit better and stabilize him when he gets up. 06/09/2016. Patient seems to be improving progressing nicely without problems. The foot looks better with less evidence of infection in the wound bed looks exhibit cleaner. We will look at the possibility of starting a wound VAC on this london and may be arranging to get some Hi-Lo matrix for the patient to improve the healing and progressing quickly to skin graft. 06/11/2016. Patient is afebrile and wound VAC is in place at this time. Awaiting own word to see if he can go to [facility] for additional IV antibiotics and wound care. Considering the possibility of getting some Hi-Lo matrix onto the wound bed along with the VAC in attempt to try to improve the healing and get her ready for skin grafting. 06/12/2016 Patient's afebrile wound VAC is in place at this time. Still waiting to hear from insurance about [facility] at this time. Still receiving IV antibiotics at this time. 06/13/2016. Patient's insurance has denied him to go to [facility] looking at alternatives for care. We will consider swing bed versus home health. Now that we have a wound VAC in place have ordered some Hi-Lo matrix and we will plan to put it in the wound to more and VAC it down. 06/17/2016. Patient is afebrile and doing well with the wound VAC in place. His cultures at the time of surgery is can grow a staph or gram-positive at this time. He is on antibiotics per Dr. Gramajo. At this point we are waiting to see what psychiatric social worker supervisor can do for gagan he was to go to a swing bed at this time. Can get him out whenever of swing bed is available and that they can handle the wound VAC Current Visit: No Qualifiers: Diabetes mellitus type: due to underlying condition Qualified Code(s): E08.621 - Diabetes mellitus due to underlying condition with foot ulcer; L97.529 - Non-pressure chronic ulcer of other part of left foot with unspecified severity Subjective Patient reports: Present: feels better, tolerating a regular diet, afebrile Exam - Constitutional Vitals: Period Temp Pulse Resp BP Sys/Carvajal Pulse Ox Last 24 Hr 97.5 F-98.6 F 68-87 17-20 124-165/54-94 96-100 General appearance: mild distress - Head Head exam: Present: normal inspection - ENT ENT exam: Present: normal exam - Neck Neck exam: Present: normal inspection - Respiratory Respiratory exam: Present: clear to auscultation bilaterally - Cardiovascular Cardiovascular exam: Present: RRR - GI/Abdominal GI/Abdominal exam: Present: normal bowel sounds, soft - Extremities Exam Extremities exam: Present: normal inspection, other (wound VAC is in place in the left foot sent be functioning well at this time.) - Back Exam Back exam: Present: normal inspection - Neurological Exam Neurological exam: Present: alert, oriented X3, CN II-XII intact - Skin Skin exam: Present: normal color, warm, dry Results - Labs CBC & BMP: 06/13/16 04:21 06/13/16 04:20 Lab Results: I have reviewed the past 24 hour labs Quality Measures - VTE Contraindication to Pharmacological VTE Prophylaxis: High Risk of Bleeding Contraindication to Mechanical VTE Prophylaxis: Local Inflammation
[2016-06-17] MEDS: INSULIN REGULAR 100 UNIT/ML SUBCUT SCH ×3 (10:42→21:11)
[2016-06-17] MEDS: cefTRIAXone 2,000 MG in SODIUM CHLORIDE 0.9% 100 ML IV SCH (10:43)
[2016-06-17] MEDS: amLODIPine 5 MG TABLET PO SCH (10:45)
[2016-06-17] MEDS: LINEZOLID 600 MG TABLET PO SCH ×2 (10:46→21:08)
[2016-06-17] MEDS: DOCUSATE SODIUM 100 MG CAPSULE PO SCH ×2 (10:46→21:08)
[2016-06-17] MEDS: LISINOPRIL 20 MG TABLET PO SCH (10:46)
[2016-06-17] MEDS: PANTOPRAZOLE 40 MG TABLET PO SCH (10:46)
--- NOTE | 2016-06-17 11:20 | Physician Query Form ---
CLICK EDIT DOCUMENT TO SELECT QUERY ANSWER --> OK --> SIGN Gemini Parker RN, CCDS Certified Clinical Note Specialist W) [phone] (f) [phone] [email or web address] PROVIDERS: Make your selection(s) from the choices in EACH section by typing an "x" and enter comments in the comment section. Please use your independent medical judgment in providing your response. This request does not imply that any particular answer is desired or expected. CLINICAL INDICATORS: (Providers should not edit this section) "The left foot was then cleaned and measured, with the clean granulating wound noted to be 7.4 x 3.8 x 1.3cm. There was no open connective or bony tissue seen. The area was cleaned well and then taking a 10g scalpel, the base was cleaned sharply to bleeding tissue."---- Please provide further clarification regarding debridement: DEPTH: ( ) Skin (x ) Subcutaneous tissue ( ) Fascia ( ) Muscle ( ) Joint ( ) Tendon ( ) Bone ( ) Bursa & ligaments ( ) Nail ( ) Other, please specify: ( ) Clinically unable to determine REMOVED: ( ) Necrotic tissue ( ) Gangrenous tissue ( ) Slough ( ) Other, please specify: COMMENTS: Use of terms such as suspected, likely, or probable (associated with a specific diagnosis that is being evaluated, monitored, or treated as if it exists) are acceptable and can be restated in the discharge summary if not ruled out. MTDD
--- NOTE | 2016-06-17 12:40 | Infectious Disease Progress ---
Assessment and Plan (1) Acute osteomyelitis of left foot Status: Acute Assessment and plan: He had the Lt 5th toe amputated. E. feacalis E. coli cultured; recently MRSsimulans from tissue culture. Recommendations: Continue linezolid and ceftriaxone; but when ready for discharge home ceftriaxone can be switched to cefuroxime 500mg bid Current Visit: Yes (2) Diabetic ulcer of left foot Status: Acute Current Visit: No Qualifiers: Diabetes mellitus type: due to underlying condition Qualified Code(s): E08.621 - Diabetes mellitus due to underlying condition with foot ulcer; L97.529 - Non-pressure chronic ulcer of other part of left foot with unspecified severity Infectious Disease - PN: Subj Interval history: Patietn doing relatively ok, he had repeat debridement of lt foot last week and placement of hyalomatrix. Wound vac in situ and he is still waiting for placement. Infectious Disease Exam (PN) - Constitutional Vitals: Temp Pulse Resp BP Pulse Ox 97.7 F 78 20 148/94 98 06/17/16 04:00 06/17/16 04:00 06/17/16 04:00 06/17/16 04:00 06/17/16 04:00 General appearance: mild distress Exam: General appearance: no acute distress - Eye Eye exam: Present: EOMI. no icterus Pupils: Present: BARRY - ENT ENT exam: no oral exudates - Respiratory Respiratory exam: vesicular BS, no crepitations or wheezes - Cardiovascular Cardiovascular exam: regular rate and rhythm, no murmurs - GI/Abdominal GI/Abdominal exam: normal bowel sounds, soft, non-tender, no organomegaly or mass - Extremities Exam Extremities exam: Lt foot wound bandaged with VAC - Skin Skin exam: no rash Results - Labs CBC & BMP: 06/13/16 04:21 06/13/16 04:20 Lab Results: I have reviewed the past 24 hour labs (MRSsimulans from last wound culture) Quality Measures - VTE Contraindication to Pharmacological VTE Prophylaxis: High Risk of Bleeding Contraindication to Mechanical VTE Prophylaxis: Local Inflammation
[2016-06-17] MEDS: MOMETASONE 0.1% CREAM 15 GM TUBE TOP SCH (18:53)
[2016-06-17] MEDS: SODIUM HYPOCHLORITE 0.25% IRRIG 473 ML BOTTLE TOP SCH (18:53)
[2016-06-17] MEDS: INSULIN GLARGINE 100 UNIT/ML SUBCUT SCH (21:08)
[2016-06-18 05:41] LABS: Basophils % 0.6 % (0.0-0.8); Eosinophils # 0.1 10*3/uL (0.0-0.87); Eosinophils % 1.3 % (0.00-10.9); Hematocrit 32.2 VOL% (42.0-52.0); Immature Granulocytes % 0.2 %; Immature Granulocytes Absolute 0.01 #; Lymphocytes % 36.8 % (21.2-54.2); Mean Corpuscular HGB Conc 31.1 GM/DL (32-36); Mean Corpuscular Hemoglobin 28 PG (27-34); Mean Corpuscular Volume 88.7 FL (87-102); Monocytes # 0.4 10*3/uL (0.11-0.8); Monocytes % 7.6 % (1.7-12.7); Neutrophils # 2.9 10*3/uL (1.4-7.4); Neutrophils % 53.5 % (38.7-73.9); Platelet Count 257 10*3/uL (130-400); Red Blood Count 3.63 10*6/uL (3.8-5.5); Red Cell Distribution Width 13.7 % (9.3-17.3); White Blood Count 5.4 10*3/uL (4.5-13.71)
[2016-06-18 06:07] LABS: Calcium 8.4 MG/DL (8.5-10.1); Potassium 3.6 MMOL/L (3.5-5.1)
--- NOTE | 2016-06-18 08:29 | Event Note ---
06/18/2016 Still waiting to hear from insurance to see if he be able to go to a swing bed. Attempting to get a home wound VAC for him at this time.
[2016-06-18] MEDS: cefTRIAXone 2,000 MG in SODIUM CHLORIDE 0.9% 100 ML IV SCH (09:43)
[2016-06-18] MEDS: LINEZOLID 600 MG TABLET PO SCH ×2 (09:44→22:36)
[2016-06-18] MEDS: DOCUSATE SODIUM 100 MG CAPSULE PO SCH ×2 (09:44→22:36)
[2016-06-18] MEDS: amLODIPine 5 MG TABLET PO SCH (09:44)
[2016-06-18] MEDS: LISINOPRIL 20 MG TABLET PO SCH (09:45)
[2016-06-18] MEDS: SODIUM HYPOCHLORITE 0.25% IRRIG 473 ML BOTTLE TOP SCH (09:45)
[2016-06-18] MEDS: PANTOPRAZOLE 40 MG TABLET PO SCH (09:45)
[2016-06-18] MEDS: MOMETASONE 0.1% CREAM 15 GM TUBE TOP SCH (09:45)
[2016-06-18] MEDS: INSULIN REGULAR 100 UNIT/ML SUBCUT SCH ×4 (09:45→21:10)
--- NOTE | 2016-06-18 15:50 | Event Note ---
06/18/2016 We have finally gotten a rejection from the patient's insurance to go to a swing bed. When now try to line up home health and some additional wound care with a wound VAC while he is at home. Possibly change VAC out tomorrow and let him go home and set up his visits.
[2016-06-18] MEDS: INSULIN GLARGINE 100 UNIT/ML SUBCUT SCH (22:35)
[2016-06-19] MEDS: INSULIN REGULAR 100 UNIT/ML SUBCUT SCH (08:33)
--- NOTE | 2016-06-19 08:33 | Discharge Summary ---
Hospital Course - Hospital Course Hospital Course: 06/19/16 Discharge Summary- Discharge diagnoses: 1. Acute osteomyelitis of the left 5th metatarsal 2. Type 2 DM with neuropathy 3. Diabetic foot ulcer with infection 4. Ischemic peripheral vascular changes of the lower extremities secondary to DM 5. History of possible mild CVA in mid 2016 Procedures: 06/05/16-Amputation of the left 5th toe with extensive debridement of skin, subcutaneous tissue, muscle, tendon, and tarsal bone of the left lateral foot, and debridement of superficial skin of the left medial foot blister 06/14/16-Selective debridement with placement of Hyalomatrix wound product to the left lateral foot and wound VAC placement Blow Mold Technician: Dr Raissa Mccray Brief summary-This 60 year old male was admitted from the office after presenting with worsening left foot diabetic foot ulcer. This had been chronic and ongoing for the prior 4 months, with some modest improvement and even a failed attempted closure back in March. The wound recently became worse, however, and when he came to the office it was with obvious blistering, ischemic skin changes, and infection of the skin and deep subcutaneous tissue, raising concern for a deep necrotizing process. He was then admitted on 06/04/16 , placed on empiric antibiotics, and medical management. Xray of the left foot showed acute osteomyelitis changes. On 06/05/16 he was taken to the OR, where a large abscess with necrotic tissue was encountered about the lateral left 5th metatarsal. The left 5th toe was then amputated at the level of the metatarsal head, and the skin, sub Q, tendon, muscle, and left tarsal bone were also debrided of necrotic tissue; cultures were taken. Post op he remained stable. Creatinine was 2.0 on admission, and his blood sugars were fairly stable. We consulted Dr Gramajo to help manage his antibiotics, and were able to tailor these based on his cultures, which initially showed E. coli and E. faecalis. He was on vancomycin but we adjusted this based on his creatinine, when it began to rise, and he was placed on ceftriaxone and Linezolid. The wound continued to improve, and Wound VAC was initiated on June 09, 2016. On June 14, he was taken to the OR again, where the wound was selectively debrided and cultures repeated. A Hyalomatrix wound product was placed, and he has done well from this. His cultures from the 13th show Methcillin sensitive Staph simulans, sensitive to the Ceftriaxone he was on. Today, the wound is healing well with good granulation tissue visible beneath the Hyalomatrix. There is no periwound redness, no ischemic change, no swelling. The medial blistered area has essentially epithelialized. He is feeling well, labs are stable, and wants to go home. His insurance has refused payment for any midlevel care facility, so we have arranged for VAC with home health. Dr Gramajo has recommended continued Cefuroxime, 500mg po BID, and we will plan to run this for another 2 weeks. We recultured today, replaced the VAC, and will have [facility] change the VAC on Friday. We will follow up in our office on June 27, for VAC change and reassessment. Since he's been off plavix for 'some time now' we' ll just have him resume his other home meds and take one enteric coated aspirin daily until he can follow up with his PCP. They are to call if there are problems or changes. - Time spent with patient Time with patient DS: Greater than 30 minutes Diagnosis - Discharge Diagnosis (1) Acute osteomyelitis of left foot Status: Acute Specialty Discharge - Follow Up or Referrals Follow up with: Ian Soto MD [Physician] - (See Leona on June) Discharge Plan - Discharge Data Disposition: Home Health Service Condition at Discharge: Stable Discharge Diet: diabetic diet Activity: no prolonged standing, other (Stay off your feet as much as possible; Elevate legs when you can. Use Cast shoe any time you are on your feet. ) Hygiene: keep area(s) dry Weight Bearing at Discharge: other (See above; cast shoe and avoid weight bearing except for bathroom and meals.) Contact your physician if you experience:: fever over 101, Redness or swelling, Nausea/Vomiting, Shortness of breath, Bleeding, pain uncontrolled by pain medications Wound / Dressing Care Instructions: Home Health to change dressing each Friday and (except on appointment days). 1. Remove outer dressing down to Mepitel but leave Mepitel intact. 2. Clean periwound skin with Hibiclens; rinse well. 3. Clean over mepitel with wound cleanser; pat dry gently trying not to disturb mepitel or graft. 4. Skin prep to periwound skin. 5. Replace VAC; fit black sponge over the graft area; try to keep off the periwound by making it similar to the old sponge. 6. Skin moisturizing lotion to remainder of leg and feet. 7. Adaptic to medial scar, if needed. 8. Heel pad to heel. 9. Wrap from base of toes to knee with cast padding and coban. - Discharge Medications New Aspirin [Aspirin EC] 500 mg PO DAILY #30 tablet. Cefuroxime Tab [Ceftin] 500 mg PO BID #30 tablet Mometasone 0.1% Cream [Elocon 0.1% Cream] 1 applic TOP DAILY cream Chlorhexidine 4% Soln [Hibiclens] 1 applic TOP DAILY #118 ml HYDROcodone/ACETAMIN 5-325 [[place] 5-325] 1 tablet PO Q6H #20 tablet Lisinopril [Prinivil] 40 mg PO DAILY tablet Sodium Hypochlorite 0.25% Irr [[place]ak[place] 1/2 Strength 0.25% Soln] 1 applic TOP DAILY irrigation Continue Insulin Detemir [Levemir] 30 units SUBCUT BEDTIME amLODIPine [Norvasc] 5 mg PO DAILY tablet Mometasone Furoate [Elocon 0.1% Oint] 0.1 % TOP DAILY Lisinopril [Prinivil] 40 mg PO DAILY tablet Discontinued Ciprofloxacin Tab [Cipro Tab] 500 mg PO Q12HR #10 tablet - Follow Up or Referral - Forms/Instructions Exam - Constitutional Vitals: Period Temp Pulse Resp BP Sys/Carvajal Pulse Ox Last 24 Hr 98.5 F-99.5 F 69-75 18-20 137-163/69-82 94-99 Discharge Results Procedures and tests throughout hospitalization: Pending Orders 06/19/16 08:02 Wound Culture Routine Labs on day of discharge: Labs from last 24 hours 06/19/16 06/18/16 06/18/16 07:32 19:31 15:23 POC Glucose 108 H 130 H 127 H 06/18/16 11:10 POC Glucose 106 DS: Provider Date of admission: 06/04/16 16:32 Primary care physician: ROBE Todd Attending physician on admission: Ian Soto MD Consults: 06/04/16 15:22 Consult to Anesthesiology [CONS] Routine Consulting Provider: Reason for Anesthesiology: Pre-op Clearance 06/04/16 18:17 Consult to Pharmacy [CONS] Routine Reason for Pharmacy Consult: Adjust Meds Renal Funct Consult to Pharmacy [CONS] Routine Reason for Pharmacy Consult: Dose/Manage Vancomycin 06/05/16 13:54 Consult to Wound Care - [place] [CONS] Routine Reason for Wound Care: Wound Care Management Consult Comment: diabetic ulcer left foot 06/05/16 13:59 Consult to Physical Therapy [CONS] Routine Reason for Physical Therapy: Evaluate and Treat Start Therapy: Tomorrow Consult Comment: ambulate with no weight on the left 06/05/16 14:01 Consult to Physician [CONS] Routine Comment: osteomylitis 5th metatarsal with abscess Consulting Provider: Raissa Rodriguez Consulting Provider Notified: Yes When should Consulting Provider be notified: Now Person Notified: randy bernstein Date Notified: 06/05/16 Time Notified: 14:45 06/09/16 09:33 Consult to Case Mgmt/Social Srvs [CONS] Routine Reason for Case Mgmt/Social Srvs: Discharge Planning Consult Comment: will patient qualify for regency 06/12/16 11:53 Consult to Case Mgmt/Social Srvs [CONS] Routine Reason for Case Mgmt/Social Srvs: Other Consult Comment: see if patient can be approved for linezolid 600mg po bid x 4 weeks. 06/13/16 09:37 Consult to Anesthesiology [CONS] Routine Consulting Provider: Reason for Anesthesiology: Pre-op Clearance 06/13/16 15:09 Consult to Case Mgmt/Social Srvs [CONS] Routine Reason for Case Mgmt/Social Srvs: Other Consult Comment: approve linezolid 600mg bid po x 4 weeks Discharging clinician: Leona Gamboa CNP, R
[2016-06-19] MEDS: LINEZOLID 600 MG TABLET PO SCH (09:50)
[2016-06-19] MEDS: LISINOPRIL 20 MG TABLET PO SCH (09:50)
[2016-06-19] MEDS: amLODIPine 5 MG TABLET PO SCH (09:50)
[2016-06-19] MEDS: DOCUSATE SODIUM 100 MG CAPSULE PO SCH (09:50)
[2016-06-19] MEDS: PANTOPRAZOLE 40 MG TABLET PO SCH (09:50)
[2016-06-19] MEDS: cefTRIAXone 2,000 MG in SODIUM CHLORIDE 0.9% 100 ML IV SCH (09:51)
--- NOTE | 2016-06-19 10:54 | Event Note ---
The patient was denied for swing bed by his insurance. He is going home today. D/W Dr Soto's CATERER HELPER Leona Gamboa my recommendation for cefuroxime 500mg bid + linezolid 600mg bid, both for 4 weeks, to complete a total of 6 weeks Tx for acute osteomyelitis. Patient needs CBC q week for duration of Tx with linezolid.
[2016-06-19 12:39] VITALS: BP 167/87
== END 2016-06-19 11:30 | disposition home health service (06) | DRG 617 ==
LOC: EDSTATUS 15:14 → PREOBSVTOIN 16:31 → N.3E 16:32 → EDSTATUS 17:00
PROVIDERS: ADMIT Specialist; ATTEND Specialist

== ENCOUNTER 2016-07-22 18:21 | Inpatient (IN) ==
[2016-07-22] MEDS ORDERED: SODIUM CHLORIDE 0.9% 500 ML IV STA (21:29)
[2016-07-22] MEDS ORDERED: ONDANSETRON 4 MG/2 ML VIAL IV STA (21:29)
[2016-07-22] MEDS ORDERED: PANTOPRAZOLE 40 MG VIAL IV STA (21:29)
--- NOTE | 2016-07-22 21:33 | EKG Report ---
Stationary ECG Study [facility] ER Test Date: 07/22/2016 9:11:37 PM Pat Name: FREDY SAMSON Department: Room: Gender: M Biodiesel Production Technician: GAVIN : 1955 Requested by: Jan Hutchinson Order Number: [id number] Reading MD: DIEGO COTTON Intervals [place] Rate: 85 P: 64 VA: 145 QRS: -14 QRSD: 100 T: -19 QT: 368 QTc: 410 Interpretive Statements SINUS RHYTHM Borderline repol abnorm Electronically Signed On 07-24-16 20:11:57 FLYING I INSTRUCTOR by DIEGO COTTON [email or web address]
--- NOTE | 2016-07-22 22:01 | Emergency Department Note ---
Avila Sterling Gwan, am scribing for, and in the presence of, Jan Hartmann MD 21 :35. Shahbaz Sterling Charles R, MD, personally performed the services described in this documentation, ascribed by Roman Gramajo in my presence, and it is both accurate and complete . Arrival - Arrival Chief Complaint: Weakness Stated Complaint: bladder problems,something in urine ED Nursing Triage Note: C/O WEAKNESS WITH ONSET ONE WEEK AGO. PT WAS SENT DOWN HERE FROM [facility]. Mode of Arrival: Stretcher Limitations: No Limitations Source: Patient, Significant other, Old Records Reviewed, RN Notes Reviewed Time Seen by Provider: 07/22/16 21:15 - History of Present Illness HPI Narrative: Pt is a 60 y/o male, with a hx of TIA (2014), who presents to the ED for further evaluation of weakness, melena and SOB with an onset 1 week ago. Patient reported to [facility] in [place] and upon review of labs and a positive hemoccult (reviewed by ED physician), pt was prompted to report to ED for further evaluation. Patient stated that his SOB is worsened with exertion and that when he stands up it feels as if he is going to pass out. Patient denies any chest pain or developing any strange eating habits. noted that pt had skin graft and left toe amputation performed 07/17/2016 and has wound vac under the care of Dr. Gramajo. Patient continued to say that his TIA resulted in no deficit. No other problems/complaints reported in ED. Onset (ago): week(s) Consistency: constant Severity: moderate Allergies/Adverse Reactions: Allergies Allergy/AdvReac Type Severity Reaction Status Date / Time No Known Allergies Allergy Verified 07/17/16 06:30 Home Medications: Home Medications Medication Instructions Recorded Confirmed Type Insulin Detemir [Levemir] 30 units SUBCUT BEDTIME 01/29/16 07/17/16 History Lisinopril [Prinivil] 40 mg PO DAILY tablet 05/30/16 07/17/16 Rx amLODIPine [Norvasc] 5 mg PO DAILY tablet 05/30/16 07/17/16 Rx Aspirin [Aspirin EC] 500 mg PO DAILY #30 tablet. 06/19/16 07/17/16 Rx Cefuroxime Tab [Ceftin] 500 mg PO BID #30 tablet 06/19/16 07/17/16 Rx Azithromycin [Azithromycin Z Pack] 250 mg PO DIRECTED 07/16/16 07/17/16 History Chlorhexidine 4% Soln [Hibiclens] 1 applic TOP DIRECTED 07/16/16 07/17/16 History HYDROcodone/ACETAMIN 5-325 [[place] 1 tablet PO Q6H PRN 07/16/16 07/17/16 History 5-325] Linezolid Tab [Zyvox Tab] 600 mg PO Q12HR 07/16/16 07/17/16 History Phenylephrine/Chlorpheniramine 1 each PO Q8HR PRN 07/16/16 07/17/16 History [Ed-A-Hist 4 mg-10 mg Tablet] Atorvastatin Calcium 20 mg PO DAILY 07/17/16 07/17/16 History Clopidogrel [Plavix] 75 mg PO DAILY 07/17/16 07/17/16 History hydroCHLOROthiazide 25 mg PO DAILY 07/17/16 07/17/16 History [Hydrochlorothiazide] Review of System - Review of System 12 point system: reviewed and no additional remarkable complaints except as stated - Review of System Constitutional: Present: as per HPI, weakness Respiratory: Present: as per HPI, other (shotness of breathe) Gastrointestinal: Present: as per HPI, melena Medical,Surgical,& Family Hx - Medical History Cardio: History of: Hypertension, PVD Neurology: History of: TIA (02/09/2015) No history of: Seizures HEENT: History of: Ear Problem (Mild Loss), Eye Problem (Glasses/Cataracts) No history of: Dental Problems Endocrine: History of: Diabetes Mellitus (IDDM) Respiratory: No history of: Pneumonia (No Pneum Vac Hx), Respiratory Problems (No Flu Vac 2015) Musculoskeletal: History of: Amputation (Right second toe R/T infection; Lt foot 5th digit) Other: History of: Skin Problems (Ulcer Foot Surgery 01/25/13 RT; Lt Ulcer 02/01/16 ; 03/14/16 Sched for Closure) No history of: Anesthesia Reactions - Surgical History Thoracic Surgeries: Patient denies;: Organ Transplant, Lobectomy Neurologic Surgeries: Patient denies: Neurologic Surgery HEENT Surgeries: Patient denies: Eye Surgery, Tonsilectomy & Adenoidectomy Reproductive Surgeries: Patient denies;: Genitourinary Surgery - Family History Family History: Reports;: Family Cancer (grand father and uncle), Family Diabetes (grandmother), Family Hypertension (mother), Family Stroke (mother) - Social History Smoking Status: Never smoker Frequency of Alcohol Use: None Type of Drug Use: None Exam Vital Signs: Vital Signs Temperature 97.2 F L 07/22/16 21:17 Pulse Rate 97 H 07/22/16 21:17 Respiratory Rate 20 07/22/16 21:17 Blood Pressure 103/71 07/22/16 21:17 O2 Sat by Pulse Oximetry 100 07/22/16 18:45 - General General appearance: alert, in no apparent distress, other (weak) - Head Head exam: Present: atraumatic, normocephalic - Eye Eye exam: Present: other (pale conjunctiva) - Neck Neck exam: Present: full ROM, trachea midline. Absent: tenderness, meningismus , lymphadenopathy, thyromegaly - Chest Chest inspection: Present: symmetric chest wall rise. Absent: tenderness - Respiratory Respiratory exam: Present: normal lung sounds bilaterally. Absent: respiratory distress - Cardiovascular Cardiovascular exam: Present: tachycardia - Rectal Exam Rectal exam: Present: heme (+) stool (per medical records from [facility]; reviewed by ED physician) - Extremities Exam Extremities exam: Present: other (amputation 5th toe left foot; wound vac in palce) - Back Exam Back exam: Present: full ROM. Absent: tenderness - Neurological Exam Neurological exam: Present: alert, oriented X3, CN II-XII intact. Absent: motor sensory deficit - Skin Skin exam: Present: warm, dry, intact, normal color Course Course Narrative: Placed an EJ in patient's left neck without palpitation - Consultations Consultation #1: Dr. Ruiz will admit patient Time: 22:08 Results - Labs Lab Results: I have reviewed the patients labs Labs: All results from previous facility reviewed. - Diagnostic Findings Procedure: Abdominal x-ray: report reviewed by me (No acute radiographic abnormality in the abdomen.), Chest x-ray: report reviewed by me (No acute cardiopulmonary process. No significant change from prior. ) Disposition Clinical Impression: Diabetic ulcer of left foot, Generalized weakness, Acute blood loss anemia, Near syncope, Hypotension, Renal insufficiency Case discussed with: patient, patient's family Disposition: Still a Patient Condition: Stable Time of Disposition: 22:09
--- NOTE | 2016-07-22 22:15 | XRay Report ---
XR abdomen 2V Clinical Information: Abdominal Pain constipation Comparison: None Findings: Bowel gas pattern is nonspecific and within normal limits. No abnormally dilated small bowel loops are identified to suggest obstruction. There is no free air identified. Scattered fecal material is noted throughout colon, which is otherwise nondilated. No abnormal focal soft tissue masses or calcific densities are identified in the abdomen or pelvis. Lung bases appear predominantly clear. There is no acute osseous abnormality. No suspicious osseous lesions are identified. Impression: No acute radiographic abnormality in the abdomen. A moderate degree of fecal stasis/constipation is suspected. PROCEDURE INTERPRETED AT [facility] DEPARTMENT OF RADIOLOGY Final Report Signed by: Fabián Box
--- NOTE | 2016-07-22 22:15 | XRay Report ---
Exam: XR chest 1V Indication: Shortness of breath Comparison study: 07/22/2016 at 3:18 PM Findings: The heart, mediastinum and bony structures are stable from prior. There is no focal consolidation, pneumothorax or pleural effusion identified. Impression: No acute cardiopulmonary process. No significant change from prior. PROCEDURE INTERPRETED AT [facility] DEPARTMENT OF RADIOLOGY Final Report Signed by: Fabián Box
[2016-07-22] MEDS ORDERED: ED A HIST PO PRN (22:16)
[2016-07-22] MEDS ORDERED: ONDANSETRON 4 MG/2 ML VIAL ONE (22:25)
[2016-07-22] MEDS ORDERED: PANTOPRAZOLE 40 MG VIAL IV ONE (22:25)
[2016-07-22] MEDS ORDERED: MORPHINE 2 MG/1 ML SYRINGE IV PRN (22:27)
[2016-07-22] MEDS ORDERED: ONDANSETRON 4 MG/2 ML VIAL IV PRN (22:27)
[2016-07-22] MEDS ORDERED: ACETAMINOPHEN 325 MG TABLET PO PRN (22:27)
[2016-07-22] MEDS ORDERED: BISACODYL 5 MG TABLET PO PRN (22:27)
[2016-07-22 22:28] LABS: Basophils % 0.1 % (0.0-0.8); Eosinophils % 0.1 % (0.00-10.9); Hematocrit 23.7 VOL% (42.0-52.0); Immature Granulocytes % 0.1 %; Immature Granulocytes Absolute 0.01 #; Lymphocytes # 1.8 10*3/uL (1.4-4.0); Lymphocytes % 26.8 % (21.2-54.2); Mean Corpuscular HGB Conc 33.8 GM/DL (32-36); Mean Corpuscular Hemoglobin 29 PG (27-34); Mean Corpuscular Volume 84.3 FL (87-102); Mean Platelet Volume 9.6 FL (9.6-12.0); Monocytes # 0.6 10*3/uL (0.11-0.8); Monocytes % 8.5 % (1.7-12.7); Neutrophils # 4.4 10*3/uL (1.4-7.4); Neutrophils % 64.4 % (38.7-73.9); Platelet Count 194 T/CUMM (130-400); Red Blood Count 2.81 MC/CUMM (3.8-5.5); Red Cell Distribution Width 14.3 % (9.3-17.3); White Blood Count 6.8 T/CUMM (4-12)
[2016-07-22] MEDS ORDERED: AZITHROMYCIN 250 MG TABLET PO SCH (22:30)
--- NOTE | 2016-07-22 22:37 | Hospitalist History & Physical ---
Assessment and Plan (1) Acute blood loss anemia Status: Acute Current Visit: Yes (2) Excessive use of nonsteroidal anti-inflammatory drug (NSAID) Status: Acute Current Visit: Yes (3) Heme positive stool Status: Acute Current Visit: Yes (4) Acute renal failure due to tubular necrosis Status: Acute Current Visit: Yes (5) Insulin dependent diabetes mellitus Status: Acute Current Visit: Yes (6) Status post amputation of toe of left foot Status: Acute Assessment and plan: Plan: 07/22: Admit for GI workup including gastroenterology consult, probable endoscopy , Protonix twice a day. Transfuse packed red blood cells if needed. We'll hold his aspirin as this may be the culprit of his anemia/heme-positive stool. Consult Dr. Soto to check his wound/wound VAC status post left toe amputation. Volume resuscitation with IV fluids and recheck renal function in the morning. Current Visit: Yes History of Present Illness Chief complaint: dizziness, heme positive stool, anemia, sent from [facility] History of present illness: Mr. Laird is a 60 year old male with insulin-dependent diabetes, hypertension , history of stroke, recent left fifth arbitration with wound VAC placement, here with several days of weakness and positive stool. His H&H today was 8.5 and 26.3 which is a marked change from previous. The patient does not recall any topher melena or hematochezia, however he has been becoming weaker and weaker. He was on aspirin and Plavix however he was taken off Plavix prior to his fifth toe amputation on 07/17/2016, he has been taking 500 mg of aspirin daily for at least 3 weeks. He denies abdominal pain, nausea or vomiting, or diarrhea. His symptoms are onset and worsening. Home Medications Medication Instructions Recorded Confirmed Type Insulin Detemir [Levemir] 30 units SUBCUT BEDTIME 01/29/16 07/17/16 History Lisinopril [Prinivil] 40 mg PO DAILY tablet 05/30/16 07/17/16 Rx amLODIPine [Norvasc] 5 mg PO DAILY tablet 05/30/16 07/17/16 Rx Aspirin [Aspirin EC] 500 mg PO DAILY #30 tablet. 06/19/16 07/17/16 Rx Cefuroxime Tab [Ceftin] 500 mg PO BID #30 tablet 06/19/16 07/17/16 Rx Azithromycin [Azithromycin Z Pack] 250 mg PO DIRECTED 07/16/16 07/17/16 History Chlorhexidine 4% Soln [Hibiclens] 1 applic TOP DIRECTED 07/16/16 07/17/16 History HYDROcodone/ACETAMIN 5-325 [[place] 1 tablet PO Q6H PRN 07/16/16 07/17/16 History 5-325] Linezolid Tab [Zyvox Tab] 600 mg PO Q12HR 07/16/16 07/17/16 History Phenylephrine/Chlorpheniramine 1 each PO Q8HR PRN 07/16/16 07/17/16 History [Ed-A-Hist 4 mg-10 mg Tablet] Atorvastatin Calcium 20 mg PO DAILY 07/17/16 07/17/16 History Clopidogrel [Plavix] 75 mg PO DAILY 07/17/16 07/17/16 History hydroCHLOROthiazide 25 mg PO DAILY 07/17/16 07/17/16 History [Hydrochlorothiazide] Allergies Allergy/AdvReac Type Severity Reaction Status Date / Time No Known Allergies Allergy Verified 07/17/16 06:30 Medical,Surgical,& Family Hx - Medical History Cardio: History of: Hypertension, PVD Neurology: History of: TIA (02/09/2015) No history of: Seizures HEENT: History of: Ear Problem (Mild Loss), Eye Problem (Glasses/Cataracts) No history of: Dental Problems Endocrine: History of: Diabetes Mellitus (IDDM) Respiratory: No history of: Pneumonia (No Pneum Vac Hx), Respiratory Problems (No Flu Vac 2015) Musculoskeletal: History of: Amputation (Right second toe R/T infection; Lt foot 5th digit) Other: History of: Skin Problems (Ulcer Foot Surgery 01/25/13 RT; Lt Ulcer 02/01/16 ; 03/14/16 Sched for Closure) No history of: Anesthesia Reactions - Surgical History Thoracic Surgeries: Patient denies;: Organ Transplant, Lobectomy Neurologic Surgeries: Patient denies: Neurologic Surgery HEENT Surgeries: Patient denies: Eye Surgery, Tonsilectomy & Adenoidectomy Reproductive Surgeries: Patient denies;: Genitourinary Surgery - Family History Family History: Reports;: Family Cancer (grand father and uncle), Family Diabetes (grandmother), Family Hypertension (mother), Family Stroke (mother) - Social History Smoking Status: Never smoker Frequency of Alcohol Use: None Type of Drug Use: None Marital Status: Lives With:: Spouse Functional capacity: independent ambulation Review of systems: A 12 point review of systems is negative except as specified in the HPI Exam - Constitutional Vitals: Period Temp Pulse Resp BP Sys/Carvajal Pulse Ox Last 24 Hr 97.2 F-97.2 F 97-97 20-20 103-103/71-71 100 Exam: EXAM: CONSTITUTIONAL: non toxic, NAD HEENT: NC, AT, OP benign, BARRY, EOMI CV: RRR no m/g/r RESP: clear B/L, no w/r/r GI: abd soft, NT, ND, +bowel sounds INTEGUMENTARY: no lesions or rash EXTREMITIES: Dressing and wound VAC the left foot status post left fifth toe amputation NEURO: no focal deficits PSYCH: unremarkable, A/O x3 Results - Labs CBC & BMP: 07/22/16 21:15 07/22/16 21:15 - EKG EKG shows: sinus rhythm - Diagnostic Findings Procedure: Abdominal x-ray: image reviewed by me, report reviewed by me, Chest x -ray: image reviewed by me, report reviewed by me Quality Measures - VTE Contraindication to Pharmacological VTE Prophylaxis: High Risk of Bleeding Contraindication to Mechanical VTE Prophylaxis: Ischemic Vascular Disease
[2016-07-22 22:42] LABS: Ammonia < 10 UMOL/L (11-32)
[2016-07-22 22:47] LABS: Alanine Aminotransferase 29 U/L (16-61); Albumin 3.8 G/DL (3.4-5.0); Alkaline Phosphatase 63 U/L (45-117); Aspartate Amino Transferase 18 U/L (0-37); Bilirubin,Total < 0.39 MG/DL (0.2-1.0); Blood Urea Nitrogen 36 MG/DL (7-18); Glucose 134 MG/DL (74-106); Magnesium 2.4 MG/DL (1.8-2.4); Osmolality,Calculated 284.7 MOS/KG (273-304); Potassium 3.7 MMOL/L (3.5-5.1); Sodium 138 MMOL/L (136-145); Troponin I Only < 0.015 NG/ML (0.00-0.045)
[2016-07-22 22:48] LABS: INR 1.1; PT Patient Result 11.7 SECS
[2016-07-22] MEDS ORDERED: GLUCAGON 1 MG VIAL IM PRN (23:16)
[2016-07-22] MEDS ORDERED: DEXTROSE 50% 25 GM/50 ML VIAL IV PRN (23:16)
[2016-07-23] MEDS: CHLORHEXIDINE 4% SOLN 118 ML BOTTLE TOP SCH ×2 (00:33→22:45)
[2016-07-23] MEDS: INSULIN REGULAR 100 UNIT/ML SUBCUT SCH ×4 (00:33→18:32)
[2016-07-23] MEDS: PANTOPRAZOLE 40 MG VIAL IV SCH ×3 (00:33→20:31)
[2016-07-23 07:46] LABS: Basophils % 0.4 % (0.0-0.8); Eosinophils % 0.4 % (0.00-10.9); Hematocrit 21.8 VOL% (42.0-52.0); Hemoglobin 7.5 GM/DL (14.0-18.0); Immature Granulocytes % 0.2 %; Immature Granulocytes Absolute 0.01 #; Lymphocytes # 1.8 10*3/uL (1.4-4.0); Lymphocytes % 39.3 % (21.2-54.2); Mean Corpuscular HGB Conc 34.4 GM/DL (32-36); Mean Corpuscular Hemoglobin 29 PG (27-34); Mean Corpuscular Volume 83.8 FL (87-102); Mean Platelet Volume 9.5 FL (9.6-12.0); Monocytes # 0.5 10*3/uL (0.11-0.8); Monocytes % 10.7 % (1.7-12.7); Neutrophils # 2.2 10*3/uL (1.4-7.4); Platelet Count 179 T/CUMM (130-400); Red Cell Distribution Width 14.5 % (9.3-17.3); White Blood Count 4.6 T/CUMM (4-12)
[2016-07-23 08:19] LABS: Calcium 8.1 MG/DL (8.5-10.1); Osmolality,Calculated 282.7 MOS/KG (273-304); Potassium 3.8 MMOL/L (3.5-5.1)
[2016-07-23] MEDS ORDERED: SODIUM CHLORIDE 0.9% 250 ML IV PRN (08:59)
[2016-07-23] MEDS ORDERED: LINEZOLID 600 MG TABLET PO SCH (09:00)
[2016-07-23] MEDS ORDERED: CEFUROXIME 500 MG TABLET PO SCH (09:00)
--- NOTE | 2016-07-23 09:33 | Hospitalist Progress Note ---
Assessment and Plan (1) Acute blood loss anemia Status: Acute Current Visit: Yes (2) Excessive use of nonsteroidal anti-inflammatory drug (NSAID) Status: Acute Current Visit: Yes (3) Heme positive stool Status: Acute Current Visit: Yes (4) Acute renal failure due to tubular necrosis Status: Acute Current Visit: Yes (5) Insulin dependent diabetes mellitus Status: Acute Current Visit: Yes (6) Status post amputation of toe of left foot Status: Acute Assessment and plan: Plan: 07/22: Admit for GI workup including gastroenterology consult, probable endoscopy , Protonix twice a day. Transfuse packed red blood cells if needed. We'll hold his aspirin as this may be the culprit of his anemia/heme-positive stool. Consult Dr. Soto to check his wound/wound VAC status post left toe amputation. Volume resuscitation with IV fluids and recheck renal function in the morning. 07/23: Transfuse packed red blood cells, GI consult for probable endoscopy. Check iron/B12/folate studies. Current Visit: Yes Hospitalist: Subjective Interval history: Mr. Laird does not have a bowel movement. His counts are down such that he will need a blood transfusion. GI to evaluate today, he has no complaints. Exam - Constitutional Vitals: Period Temp Pulse Resp BP Sys/Carvajal Pulse Ox Last 24 Hr 97.9 F-98 F 84-90 17-18 100-129/60-72 96-100 Exam: EXAM: CONSTITUTIONAL: non toxic, NAD HEENT: NC, AT, OP benign, BARRY, EOMI CV: RRR no m/g/r RESP: clear B/L, no w/r/r GI: abd soft, NT, ND, +bowel sounds INTEGUMENTARY: no lesions or rash EXTREMITIES: Dressing and wound VAC the left foot status post left fifth toe amputation NEURO: no focal deficits PSYCH: unremarkable, A/O x3 Results - Labs CBC & BMP: 07/23/16 06:56 07/23/16 06:56 Lab Results: I have reviewed the past 24 hour labs Quality Measures - VTE Contraindication to Pharmacological VTE Prophylaxis: High Risk of Bleeding Contraindication to Mechanical VTE Prophylaxis: Ischemic Vascular Disease
[2016-07-23 10:03] LABS: % Iron Saturation 53.6 % (18-50); Ferritin 226.1 ng/ml (26-388)
--- NOTE | 2016-07-23 14:04 | Gastrointestinal Consult Note ---
Assessment and Plan (1) Anemia Status: Acute Assessment and plan: 07/23-Findings of anemia with hgb 8, with no overt bleeding. Heme postiive stools noted in clinic. Hx of anemia with transfusion in 2012. Prior endoscopy at [facility]. Obtain endoscopy report from [facility], check stool for occult blood, serial HH, diabetic diet. WIll plan for tentative EGD tomorrow to further evaluate. Plan and addendum to follow by DR Marte. Current Visit: Yes History of Present Illness Chief complaint: Anemia History of present illness: Mr. Laird is a 60 year old male who presented to the hospital with complaints of dizziness, weakness and findings of anemia. Pt states that the last several days he has not felt well with onset of some progressive weakness and dizziness. He has a recent left 5th toe amputation with wound VAC placement. He is followed by Dr Soto for this. He was on Plavix prior to this surgery which was done several weeks ago on 06/14 for osteomyelitis. He states this was stopped and he was started on Aspirin TID since this time. Pt states that he has seen no overt bleeding at home. He presented to [facility] in [place] and was found to have heme positive stools and hemoglobin of 8.5 ( noted his baseline was 12.6 in August of 2015) and sent to the ER for evaluation. Pt denies any recent weight loss. States he has had some episodes of nausea and vomiting over the last several weeks which he states is from taking antibiotics. Denies any coffee ground or hematemesis with this. Denies any fever, chills. Denies any melena or hematochezia. States he has been anemic in the past and was transfused in 2012 with his previous toe amputation to his right foot. He has seen Dr Balbuena in the past, in the last 3-4 years and states he had both upper and lower endoscopy at [facility]. BUN/Cr ratio 17, hgb 7.5 today. Being transfused 2 units of PRBC. He is diabetic and reports his blood sugars to be controlled. Home Medications Medication Instructions Recorded Confirmed Type Insulin Detemir [Levemir] 30 units SUBCUT BEDTIME 01/29/16 07/23/16 History Lisinopril [Prinivil] 40 mg PO DAILY tablet 05/30/16 07/23/16 Rx amLODIPine [Norvasc] 5 mg PO DAILY tablet 05/30/16 07/23/16 Rx Aspirin [Aspirin EC] 500 mg PO DAILY #30 tablet. 06/19/16 07/23/16 Rx Atorvastatin Calcium 20 mg PO DAILY 07/17/16 07/23/16 History hydroCHLOROthiazide 25 mg PO DAILY 07/17/16 07/23/16 History [Hydrochlorothiazide] Allergies Allergy/AdvReac Type Severity Reaction Status Date / Time No Known Allergies Allergy Verified 07/17/16 06:30 Medical,Surgical,& Family Hx - Medical History Cardio: History of: Hypertension, PVD Neurology: History of: TIA (02/09/2015) No history of: Seizures HEENT: History of: Ear Problem (Mild Loss), Eye Problem (Glasses/Cataracts) No history of: Dental Problems Endocrine: History of: Diabetes Mellitus (IDDM) Respiratory: No history of: Pneumonia (No Pneum Vac Hx), Respiratory Problems (No Flu Vac 2015) Musculoskeletal: History of: Amputation (Right second toe R/T infection; Lt foot 5th digit) Hematology: History of: Anemia Other: History of: Skin Problems (Ulcer Foot Surgery 01/25/13 RT; Lt Ulcer 02/01/16 ; 03/14/16 Sched for Closure) No history of: Anesthesia Reactions - Surgical History Thoracic Surgeries: Patient denies;: Organ Transplant, Lobectomy Neurologic Surgeries: Patient denies: Neurologic Surgery HEENT Surgeries: Patient denies: Eye Surgery, Tonsilectomy & Adenoidectomy Reproductive Surgeries: Patient denies;: Genitourinary Surgery - Family History Family History: Reports;: Family Cancer (grand father and uncle), Family Diabetes (grandmother), Family Hypertension (mother), Family Stroke (mother) - Social History Smoking Status: Never smoker Frequency of Alcohol Use: None Type of Drug Use: None 12 point system: reviewed and no additional remarkable complaints except as stated - Constitutional Constitutional: Present: as per HPI, excessive sweating, weakness - EENT Eyes: Present: as per HPI Ears: Present: as per HPI Nose, mouth and throat: Present: as per HPI - Cardiovascular Cardiovascular: Present: as per HPI - Respiratory Respiratory: Present: as per HPI - Gastrointestinal Gastrointestinal: Present: as per HPI - Genitourinary Genitourinary: Present: as per HPI - Musculoskeletal Musculoskeletal: Present: as per HPI - Neurological Neurological: Present: as per HPI, dizziness - Psychiatric Psychiatric: Present: as per HPI - Endocrine Endocrine: Present: as per HPI - Hematologic/Lymphatic Hematologic/Lymphatic: Present: as per HPI Exam - Constitutional Vitals: Period Temp Pulse Resp BP Sys/Carvajal Pulse Ox Last 24 Hr 97.9 F-98.9 F 81-90 16-18 100-132/56-72 95-100 General appearance: normal weight, no acute distress - Head Head exam: Present: normal inspection, normocephalic - Eye Eye exam: Present: other (lids and conjunctiva unremarkable). Absent: scleral icterus - ENT ENT exam: Present: normal exam, normal oropharynx - Neck Neck exam: Present: normal inspection - Respiratory Respiratory exam: Present: clear to auscultation bilaterally. Absent: rales, rhonchi, wheezes - Cardiovascular Cardiovascular exam: Present: regular rate and rhythm. Absent: diastolic murmur , JVD, systolic murmur - GI/Abdominal GI/Abdominal exam: Present: normal bowel sounds, soft. Absent: ascites, distended, mass, organomegaly, tenderness - Extremities Exam Extremities exam: Present: normal inspection, full ROM - Back Exam Back exam: Present: normal inspection - Neurological Exam Neurological exam: Present: alert, oriented X3 - Psychiatric Psychiatric exam: Present: normal affect, normal mood - Skin Skin exam: Present: normal color, warm, dry Results - Labs CBC & BMP: 07/23/16 06:56 07/23/16 06:56 Lab Results: I have reviewed the past 24 hour labs Quality Measures - VTE Contraindication to Pharmacological VTE Prophylaxis: High Risk of Bleeding Contraindication to Mechanical VTE Prophylaxis: Ischemic Vascular Disease
[2016-07-23] MEDS ORDERED: DEXTROSE 50% 25 GM/50 ML VIAL IV PRN (14:08)
[2016-07-23] MEDS ORDERED: GLUCAGON 1 MG VIAL IM PRN (14:08)
[2016-07-23] MEDS: ATORVASTATIN 20 MG TABLET PO SCH (14:55)
[2016-07-23] MEDS: POLYETHYLENE GLYCOL POWDER 17 GM PACK PO SCH (15:54)
--- NOTE | 2016-07-23 15:54 | General Surgery Consult Note ---
Assessment and Plan - Time spent with patient Time spent with patient: Less than 30 minutes (1) Diabetic ulcer of left foot Status: Acute Assessment and plan: Impression: 1. Diabetic foot ulcer with skin graft in place 2. Diabetes insulin-dependent 3. Anemia possible GI bleed Plan: We will change the wound VAC dressing probably or Friday Current Visit: Yes Qualifiers: Diabetes mellitus type: due to underlying condition Qualified Code(s): E08.621 - Diabetes mellitus due to underlying condition with foot ulcer; L97.529 - Non-pressure chronic ulcer of other part of left foot with unspecified severity History of Present Illness Chief complaint: Patient known to us with a wound of the left foot History of present illness: Mr. Laird is a 60 year old male -[place] male who was admitted last night for anemia of questionable GI bleed. His hematocrit was down to 23 generally feeling bad and weak at this time. Medicine has put him in for further evaluation of this potential bleeding site. We were consulted because we have put a skin graft on his left lateral foot has a wound VAC in place. Will not change us until the latter part of the week to see if the skin graft is taking. Home Medications Medication Instructions Recorded Confirmed Type Insulin Detemir [Levemir] 30 units SUBCUT BEDTIME 01/29/16 07/23/16 History Lisinopril [Prinivil] 40 mg PO DAILY tablet 05/30/16 07/23/16 Rx amLODIPine [Norvasc] 5 mg PO DAILY tablet 05/30/16 07/23/16 Rx Aspirin [Aspirin EC] 500 mg PO DAILY #30 tablet. 06/19/16 07/23/16 Rx Atorvastatin Calcium 20 mg PO DAILY 07/17/16 07/23/16 History hydroCHLOROthiazide 25 mg PO DAILY 07/17/16 07/23/16 History [Hydrochlorothiazide] Allergies Allergy/AdvReac Type Severity Reaction Status Date / Time No Known Allergies Allergy Verified 07/17/16 06:30 Medical,Surgical,& Family Hx - Medical History Cardio: History of: Hypertension, PVD Neurology: History of: TIA (02/09/2015) No history of: Seizures HEENT: History of: Ear Problem (Mild Loss), Eye Problem (Glasses/Cataracts) No history of: Dental Problems Endocrine: History of: Diabetes Mellitus (IDDM) Respiratory: No history of: Pneumonia (No Pneum Vac Hx), Respiratory Problems (No Flu Vac 2016) Musculoskeletal: History of: Amputation (Right second toe R/T infection; Lt foot 5th digit) Hematology: History of: Anemia Other: History of: Skin Problems (Ulcer Foot Surgery 01/25/13 RT; Lt Ulcer 02/01/16 ; 03/14/16 Sched for Closure) No history of: Anesthesia Reactions - Surgical History Thoracic Surgeries: Patient denies;: Organ Transplant, Lobectomy Neurologic Surgeries: Patient denies: Neurologic Surgery HEENT Surgeries: Patient denies: Eye Surgery, Tonsilectomy & Adenoidectomy Reproductive Surgeries: Patient denies;: Genitourinary Surgery - Family History Family History: Reports;: Family Cancer (grand father and uncle), Family Diabetes (grandmother), Family Hypertension (mother), Family Stroke (mother) - Social History Smoking Status: Never smoker Frequency of Alcohol Use: None Type of Drug Use: None 12 point system: reviewed and no additional remarkable complaints except as stated Exam - Constitutional Vitals: Period Temp Pulse Resp BP Sys/Carvajal Pulse Ox Last 24 Hr 97.6 F-98.9 F 16-93 16-18 100-155/56-85 95-100 General appearance: mild distress - Head Head exam: Present: normal inspection - ENT ENT exam: Present: normal exam - Neck Neck exam: Present: normal inspection - Respiratory Respiratory exam: Present: clear to auscultation bilaterally, rales - Cardiovascular Cardiovascular exam: Present: RRR - GI/Abdominal GI/Abdominal exam: Present: normal bowel sounds, soft. Absent: tenderness - Extremities Exam Extremities exam: Present: other (Donor site of the left thigh and a wound VAC in place of the left foot) - Neurological Exam Neurological exam: Present: alert, oriented X3, CN II-XII intact - Skin Skin exam: Present: normal color, warm, dry Quality Measures - VTE Contraindication to Pharmacological VTE Prophylaxis: High Risk of Bleeding Contraindication to Mechanical VTE Prophylaxis: Ischemic Vascular Disease Results - Labs CBC & BMP: 07/23/16 06:56 07/23/16 06:56 Lab Results: I have reviewed the past 24 hour labs
[2016-07-23 19:24] LABS: Hematocrit 27.6 VOL% (42.0-52.0)
[2016-07-23 19:27] LABS: Hemoglobin 9.3 GM/DL (14.0-18.0)
[2016-07-23 21:53] LABS: Hematocrit 26.2 VOL% (42.0-52.0); Hemoglobin 8.8 GM/DL (14.0-18.0)
[2016-07-23] MEDS ORDERED: PANTOPRAZOLE 40 MG VIAL IV SCH (23:30)
[2016-07-24] MEDS: INSULIN REGULAR 100 UNIT/ML SUBCUT SCH ×4 (01:24→18:24)
[2016-07-24 06:25] LABS: Basophils % 0.3 % (0.0-0.8); Eosinophils # 0.1 10*3/uL (0.0-0.87); Eosinophils % 1.2 % (0.00-10.9); Hemoglobin 9.2 GM/DL (14.0-18.0); Immature Granulocytes % 0.2 %; Immature Granulocytes Absolute 0.01 #; Lymphocytes # 1.8 10*3/uL (1.4-4.0); Lymphocytes % 30.2 % (21.2-54.2); Mean Corpuscular HGB Conc 32.9 GM/DL (32-36); Mean Corpuscular Hemoglobin 29 PG (27-34); Mean Corpuscular Volume 88.1 FL (87-102); Mean Platelet Volume 9.2 FL (9.6-12.0); Monocytes # 0.8 10*3/uL (0.11-0.8); Monocytes % 14.2 % (1.7-12.7); Neutrophils # 3.2 10*3/uL (1.4-7.4); Neutrophils % 53.9 % (38.7-73.9); Platelet Count 171 T/CUMM (130-400); Red Blood Count 3.18 MC/CUMM (3.8-5.5); Red Cell Distribution Width 14.1 % (9.3-17.3); White Blood Count 5.9 T/CUMM (4-12)
[2016-07-24 06:56] LABS: Calcium 8.2 MG/DL (8.5-10.1); Osmolality,Calculated 282.5 MOS/KG (273-304)
--- NOTE | 2016-07-24 08:39 | Hospitalist Progress Note ---
Hospitalist: Subjective Interval history: Mr. Laird is gone for E scope at this time. He was admitted with Acute blood loss anemia that has resolved after 2 units of PRBC's. His Creatinine is much improved from yesterday. Today 1.5, yesterday 2.2. I will see him later today. Exam - Constitutional Vitals: Period Temp Pulse Resp BP Sys/Carvajal Pulse Ox Last 24 Hr 97.2 F-98.9 F 16-93 16-20 106-155/56-85 93-100 Results - Labs CBC & BMP: 07/24/16 05:52 07/24/16 05:52 Quality Measures - VTE Contraindication to Pharmacological VTE Prophylaxis: High Risk of Bleeding Contraindication to Mechanical VTE Prophylaxis: Ischemic Vascular Disease
[2016-07-24] MEDS ORDERED: LIDOCAINE 2% 5 ML VIAL ONE (08:55)
[2016-07-24] MEDS ORDERED: PROPOFOL 200 MG/20 ML VIAL IV ONE (08:55)
--- NOTE | 2016-07-24 09:07 | History and Physical Update ---
History and Physical Update - History and Physical H&P was reviewed, the patient examined and there: are no changes in the patients condition since last H&P was completed. - Physical Exam Mental Status: alert and oriented Heart: regular rate and rhythm Lung: clear to auscultation Abdomen: within normal limits Vitals: within normal limits
--- NOTE | 2016-07-24 09:09 | Anesthesia ---
Anesthesia Post OP - Post Ansesthetic Evaluation Patient seen in post op: Yes Resp: within normal limits CV: within normal limits Mental: within normal limits Temp: within normal limits [id number]: within normal limits Nausea and Vomiting: within normal limits Pain: within normal limits
--- NOTE | 2016-07-24 09:11 | Operative Note ---
Date of procedure: 07/24/16 Pre-op diagnosis: GI bleed with anemia Procedure: Procedure: Esophagogastroduodenoscopy Brief clinical abstract: Patient is a 60-year-old male admitted with symptomatic anemia. He was found to have occult blood in stool. He denies any abdominal pain or gross GI bleeding. He reports that his weight is stable. Indication for procedure: GI bleed, anemia Endoscopic findings:[After informed consent was obtained, the patient was placed in the left lateral decubitus position. The gastroscope was inserted in the upper esophagus under direct vision with no resistance encountered. Esophageal mucosa appeared normal to the distal esophagus. There were 2 longitudinal ulcers, each approximately 2 cm in length extending to the squamocolumnar junction consistent with probable reflux etiology. 2-3 cm long hiatal hernia is present distal to this. The endoscope was advanced in the stomach which was carefully examined including retroflexed view of the cardia and fundus with no other abnormality seen. The pyloric channel was normal. In the duodenal bulb there were 3 approximately 1-1.5 cm diameter ulcers which were clean based with no visible vessel. The second and third portion of the duodenum had normal appearance. The endoscope was withdrawn and patient appeared to tolerate the procedure well. Impression: #1 ulcerative esophagitis secondary to GERD #2 hiatal hernia #3 duodenal bulb ulcers-probable source of bleeding and anemia. Recommendations: Continue PPI therapy and would treat for Helicobacter pylori infection at discharge. He will need follow-up stool for H. pylori antigen after treatment to verify clearance. We also need to obtain his colonoscopy report from [facility] which he says was done in the last 3 years or so by Dr. Balbuena. Anesthesia: MAC Surgeon / Physician: Perez Marte Estimated blood loss: none Specimens: none sent Condition: stable Disposition: post procedure unit Results - Labs CBC & BMP: 07/24/16 05:52 07/24/16 05:52 Discharge Plan - Discharge Medications No Action Insulin Detemir [Levemir] 30 units SUBCUT BEDTIME amLODIPine [Norvasc] 5 mg PO DAILY tablet Aspirin [Aspirin EC] 500 mg PO DAILY #30 tablet. hydroCHLOROthiazide [Hydrochlorothiazide] 25 mg PO DAILY Atorvastatin Calcium 20 mg PO DAILY Lisinopril [Prinivil] 40 mg PO DAILY tablet - Follow Up or Referral - Forms/Instructions
[2016-07-24] MEDS: PANTOPRAZOLE 40 MG TABLET PO SCH ×2 (10:31→20:19)
[2016-07-24] MEDS: POLYETHYLENE GLYCOL POWDER 17 GM PACK PO SCH (10:31)
[2016-07-24] MEDS: ATORVASTATIN 20 MG TABLET PO SCH (10:31)
--- NOTE | 2016-07-24 12:29 | General Surgery Progress Note ---
Assessment and Plan (1) Diabetic ulcer of left foot Status: Acute Assessment and plan: Impression: 1. Diabetic foot ulcer with skin graft in place 2. Diabetes insulin-dependent 3. Anemia possible GI bleed Plan: We will change the wound VAC dressing probably or Friday07/24/2016 Patient is doing well and plans are to take the back of a look at the skin graft tomorrow. His hematocrit is up but he has been transfused and will wait and see what GI says about him. Current Visit: Yes Qualifiers: Diabetes mellitus type: due to underlying condition Qualified Code(s): E08.621 - Diabetes mellitus due to underlying condition with foot ulcer; L97.529 - Non-pressure chronic ulcer of other part of left foot with unspecified severity Subjective Patient reports: Present: no new complaints, pain is less, afebrile. Absent: blood in stool Exam - Constitutional Vitals: Period Temp Pulse Resp BP Sys/Carvajal Pulse Ox Last 24 Hr 97.2 F-99.1 F 16-99 10-20 116-155/59-078 93-100 General appearance: no acute distress - Head Head exam: Present: normal inspection - ENT ENT exam: Present: normal exam - Neck Neck exam: Present: normal inspection - Respiratory Respiratory exam: Present: clear to auscultation bilaterally - Cardiovascular Cardiovascular exam: Present: bradycardia - GI/Abdominal GI/Abdominal exam: Present: normal bowel sounds, soft - Extremities Exam Extremities exam: Present: normal inspection, other (Wound VAC left foot remains in place dressing is dry.) - Neurological Exam Neurological exam: Present: alert, oriented X3, CN II-XII intact - Skin Skin exam: Present: normal color, warm, dry Results - Labs CBC & BMP: 07/24/16 05:52 07/24/16 05:52 Lab Results: I have reviewed the past 24 hour labs Quality Measures - VTE Contraindication to Pharmacological VTE Prophylaxis: High Risk of Bleeding Contraindication to Mechanical VTE Prophylaxis: Ischemic Vascular Disease
[2016-07-24 14:22] LABS: Hematocrit 25.9 VOL% (42.0-52.0); Hemoglobin 8.9 GM/DL (14.0-18.0)
--- NOTE | 2016-07-24 21:36 | Event Note ---
I'll see Mr. Laird along with the nurse practitioner today. The gentleman is continuing to do acceptable. Had any scope done today which showed evidence of ulcers. He is resting comfortably at this time. CBC in a.m.
[2016-07-24 21:49] LABS: Hematocrit 25.5 VOL% (42.0-52.0); Hemoglobin 8.9 GM/DL (14.0-18.0)
[2016-07-24] MEDS: CHLORHEXIDINE 4% SOLN 118 ML BOTTLE TOP SCH (21:49)
[2016-07-25] MEDS: INSULIN REGULAR 100 UNIT/ML SUBCUT SCH ×3 (01:03→11:26)
--- NOTE | 2016-07-25 08:33 | General Surgery Progress Note ---
Assessment and Plan - Time spent with patient Time spent with patient: Greater than 30 minutes (1) Diabetic ulcer of left foot Status: Acute Assessment and plan: 07/25/16 Diabetic ulcer of the left foot with osteomyelitis, healing well s/p skin grafting. He has completed the 6 week course for the osteomyelitis and the wound is now closed. We'll stop his wound vac and leave orders for Home Health to change this dressing each Friday and , with follow up in our office one week from for clip removal, unless he has problems. He needs no further antibiotics at this point from the perspective of the wound or osteomyelitis. Current Visit: Yes Qualifiers: Diabetes mellitus type: due to underlying condition Qualified Code(s): E08.621 - Diabetes mellitus due to underlying condition with foot ulcer; L97.529 - Non-pressure chronic ulcer of other part of left foot with unspecified severity Subjective Patient reports: Present: feels better, other (Says he still has moments of ' weakness' but overall feels better than when he came in.) Exam - Constitutional Vitals: Period Temp Pulse Resp BP Sys/Carvajal Pulse Ox Last 24 Hr 97.5 F-99.1 F 74-99 10-20 112-154/60-078 93-100 General appearance: no acute distress, other (Affect is quiet and somewhat depressed. ) - Respiratory Respiratory exam: Absent: accessory muscle use, rales, wheezes - GI/Abdominal GI/Abdominal exam: Present: hypoactive bowel sounds - Extremities Exam Extremities exam: Present: other (LLE without edema or redness. Donor site is clean and very minimally moist without active drainage. Left lateral foot skin graft is clean and appears to be 100% adherent; there is no fluid, no floating areas, no looseness. Edges are smooth and flat. The area was cleaned and redressed.) Results - Labs CBC & BMP: 07/24/16 21:28 07/24/16 05:52 Quality Measures - VTE Contraindication to Pharmacological VTE Prophylaxis: High Risk of Bleeding Contraindication to Mechanical VTE Prophylaxis: Ischemic Vascular Disease
[2016-07-25] MEDS: PANTOPRAZOLE 40 MG TABLET PO SCH (08:42)
[2016-07-25] MEDS: ATORVASTATIN 20 MG TABLET PO SCH (08:42)
[2016-07-25] MEDS: POLYETHYLENE GLYCOL POWDER 17 GM PACK PO SCH (08:42)
[2016-07-25] MEDS ORDERED: NEOMYCIN/POLYMYXIN/BACITRACIN OINT 0.9 GM PACK TOP SCH (09:00)
--- NOTE | 2016-07-25 09:14 | Gastrointestinal Progress Note ---
Assessment and Plan (1) Anemia Status: Acute Assessment and plan: 07/25-EGD findings noted. [facility] records also noted. Hgb holding at 8.6 with no overt bleeding. Tolerating diet. Plan and addendum to follow by Dr Marte. 07/23-Findings of anemia with hgb 8, with no overt bleeding. Heme postiive stools noted in clinic. Hx of anemia with transfusion in 2012. Prior endoscopy at [facility]. Obtain endoscopy report from [facility], check stool for occult blood, serial HH, diabetic diet. WIll plan for tentative EGD tomorrow to further evaluate. Plan and addendum to follow by DR Marte. Current Visit: Yes Gastroenterology - PN: Subj Interval history: CC: Anemia Pt is seen awake, alert feeling well today. States he does feel better after receiving the blood. Records from [facility] indication he had an EGD and a C-scope in [address] Balbuena with findings of gastritis, esophagitis and hiatal hernia and diverticulosis. Hemoglobin 8.9. EGD findings noted on yesterday with ulcerative esophagitis, hiatal hernia and duodenal bulb ulcers as probably source of bleeding. Abdomen is soft, nontender. ROS: Denies SOB or chest pain Exam (Progress Note) - Constitutional Vitals: Period Temp Pulse Resp BP Sys/Carvajal Pulse Ox Last 24 Hr 97.5 F-99.1 F 74-99 16-20 112-154/60-078 93-100 General appearance: normal weight, no acute distress - Head Head exam: Present: normal inspection, normocephalic - Eye Eye exam: Present: other (lids and conjunctiva unremarakble). Absent: scleral icterus - ENT ENT exam: Present: normal exam, normal oropharynx - Neck Neck exam: Present: normal inspection - Respiratory Respiratory exam: Present: clear to auscultation bilaterally. Absent: rales, rhonchi, wheezes - Cardiovascular Cardiovascular exam: Present: regular rate and rhythm. Absent: diastolic murmur , JVD, systolic murmur - GI/Abdominal GI/Abdominal exam: Present: normal bowel sounds, soft. Absent: ascites, distended, mass, organomegaly, tenderness - Extremities Exam Extremities exam: Present: normal inspection, full ROM - Back Exam Back exam: Present: normal inspection - Neurological Exam Neurological exam: Present: alert, oriented X3 - Psychiatric Psychiatric exam: Present: normal affect, normal mood - Skin Skin exam: Present: normal color, warm, dry Results - Labs CBC & BMP: 07/24/16 21:28 07/24/16 05:52 Lab Results: I have reviewed the past 24 hour labs
--- NOTE | 2016-07-25 10:43 | Discharge Summary ---
<Yeny Parekh - Last Filed: 07/25/16 10:39> Hospital Course - Hospital Course Hospital Course: Mr. Laird was admitted on 07/22 with acute blood loss anemia, dizziness, heme positive stool and acute renal failure. He is also s/p amputation of toe on his left foot and has a wound vac. He has been on 500 mg ASA x 3 weeks since he required cessation of plavix prior to surgery. Dr. Marte with GI was consulted for anemia. Dr. Soto was also consulted for care of his diabetic foot ulcer. On 07/24, Dr. Marte performed an EGD that showed Ulcerative esophagitis secondary to GERD, hiatal hernia and duodenal bulb ulcers as the likely culprit of his bleeding. His labs are stable with no further bleeding noted. He has been started on PPI and will continue at discharge. He is for discharge home today on appropriate medications and follow up. - Time spent with patient Time with patient DS: Greater than 30 minutes (due to plan, doc and med rec.) Diagnosis - Discharge Diagnosis (1) CELIA (acute kidney injury) Status: Acute (2) Acute blood loss anemia Status: Acute (3) Diabetic ulcer of left foot Status: Acute (4) Excessive use of nonsteroidal anti-inflammatory drug (NSAID) Status: Acute (5) Heme positive stool Status: Acute (6) Insulin dependent diabetes mellitus Status: Acute (7) Status post amputation of toe of left foot Status: Acute Specialty Discharge - Follow Up or Referrals Follow up with: Leona Gamboa CNP, RN, CV/CVN CV TSC SYSTEM OPERATOR [Advanced Practice Nurse] - 08/05/16 10:45 am (1 week from Friday) Discharge Plan - Discharge Data Disposition: Disch To Home/Self Care - Discharge Medications New Pantoprazole Tab [Protonix Tab] 40 mg PO BID #60 tablet Continue Insulin Detemir [Levemir] 30 units SUBCUT BEDTIME amLODIPine [Norvasc] 5 mg PO DAILY tablet Aspirin [Aspirin EC] 500 mg PO DAILY #30 tablet. hydroCHLOROthiazide [Hydrochlorothiazide] 25 mg PO DAILY Atorvastatin Calcium 20 mg PO DAILY Lisinopril [Prinivil] 40 mg PO DAILY tablet - Follow Up or Referral Follow Up: Leona Gamboa CNP, RN, CV/CVN CV TSC SYSTEM OPERATOR [Advanced Practice Nurse] - 08/05/16 10:45 am (1 week from Friday) - Forms/Instructions Instructions: Acute Kidney Injury (DC), Weakness (GEN), Anemia (DC) Exam - Constitutional Vitals: Period Temp Pulse Resp BP Sys/[place] Pulse Ox Last 24 Hr 97.5 F-98.2 F 74-81 16-20 112-154/64-85 93-100 Discharge Results Labs on day of discharge: Labs from last 24 hours 07/25/16 07/25/16 07/24/16 10:51 05:15 23:31 Hgb Hct POC Glucose 172 H 104 102 07/24/16 07/24/16 07/24/16 21:28 17:34 13:22 Hgb 8.9 L 8.9 L Hct 25.5 L 25.9 L POC Glucose 174 H DS: Provider Date of admission: 07/22/16 22:27 Primary care physician: . No PCP Attending physician on admission: George Ruiz DO Consults: 07/22/16 22:33 Consult to Physician [CONS] Routine Comment: L 5th toe amputation f/u, wound vac Consulting Provider: Ian Soto When should Consulting Provider be notified: In am Date Notified: 07/23/16 Time Notified: 10:28 Consult Notification Comment: aware 07/22/16 23:44 Consult to Dietitian [CONS] Routine Reason for Dietitian: Dietary Consult 07/23/16 00:20 Consult to Pharmacy [CONS] Routine Reason for Pharmacy Consult: Adjust Meds Renal Funct 07/23/16 07:47 Consult to Wound Care - [facility] [CONS] Routine Reason for Wound Care: Wound Care Management Consult Comment: wound vac Discharging clinician: Yeny Parekh NP Expected date of discharge: 07/25/16 <Merritt Gregg Jr. - Last Filed: 07/25/16 12:13> Diagnosis - Discharge Diagnosis (1) Diabetic ulcer of left foot Status: Acute (2) Renal insufficiency Status: Chronic (3) Excessive use of nonsteroidal anti-inflammatory drug (NSAID) Status: Chronic (4) Insulin dependent diabetes mellitus Status: Chronic Discharge Plan - Discharge Data Condition at Discharge: Stable Activity: resume usual activities as tolerated Exam - Constitutional General appearance: normal weight - Head Head exam: Present: normal inspection - Respiratory Respiratory exam: Present: clear to auscultation bilaterally - Cardiovascular Cardiovascular exam: Present: regular rate and rhythm - GI/Abdominal GI/Abdominal exam: Present: normal bowel sounds - Neurological Exam Neurological exam: Present: alert, oriented X3, CN II-XII intact - Psychiatric Psychiatric exam: Present: normal affect
[2016-07-25 12:25] VITALS: BP 147/77
== END 2016-07-25 14:36 | disposition home or self-care (01) | DRG 811 ==
LOC: N.ED 18:21 → N.EDINP 22:27 → N.5E 07-23 00:07
PROVIDERS: ADMIT Internal Medicine; ATTEND Internal Medicine